=== PATIENT | female | born 1950 | race Caucasian/White ===

== ENCOUNTER 2020-01-15 18:11 | Inpatient (IN) | payer MEDICARE, OTHER ==
[2020-01-15] MEDS ORDERED: ONDANSETRON 4 MG/2 ML VIAL IVP PRN (22:50)
[2020-01-16] MEDS: ACETAMINOPHEN TAB 325 MG TAB PO PRN ×3 (00:26→23:47)
[2020-01-16] MEDS ORDERED: Acetaminophen-Codeine 300-30mg TAB PO PRN (04:17)
[2020-01-16] MEDS ORDERED: ALBUTEROL NEBULIZED 2.5 MG/3 ML INHALATION PRN (04:17)
[2020-01-16] MEDS: lisinopriL 10 MG TAB PO SCH ×2 (06:16→08:55)
[2020-01-16] MEDS: ISOSORBIDE MONONITRATE ER 30 MG TAB.ER.24H PO SCH (06:16)
[2020-01-16 06:58] LABS: Basophils % (A) 0 %; Eosinophils % (A) 1 %; HCT 42.6 % (34.0-46.0); HGB 13.7 gm/dL (11.4-16.0); Lymphocytes # (A) 0.4 k/uL (1.0-4.8); Lymphocytes % (A) 11 %; MCH 30.9 pg (25.0-35.0); MCV 96.4 fL (80.0-100.0); Mean Platelet Volume 7.8; Monocytes # (A) 0.1 k/uL (0-1.0); Monocytes % (A) 3 %; Neutrophils # (A) 2.7 k/uL (1.3-7.7); Neutrophils % (A) 84 %; Platelet Count 193 k/uL (150-450); RBC 4.42 m/uL (3.80-5.40); WBC 3.3 k/uL (3.8-10.6)
--- NOTE | 2020-01-16 07:05 | XR ---
EXAMINATION TYPE: XR chest 1V portable DATE OF EXAM: 01/16/2020 HISTORY: SOB/COUGH. REFERENCE: Previous study dated 01/15/2020. FINDINGS: There are bibasilar infiltrates. The heart is mildly enlarged. I suspect small, bilateral e ffusions. A pain stimulator projects over the mid dorsal spine. IMPRESSION: BIBASILAR BASILAR AIRSPACE DISEASE, SLIGHTLY WORSENED FROM PREVIOUS.
[2020-01-16] MEDS: SODIUM CHLORIDE 0.9% 1,000 ML IV SCH ×2 (07:07→13:03)
[2020-01-16 07:10] LABS: ALT 33 U/L (4-34); AST 53 U/L (14-36); African American GFR (CKD) >90 (>60 ml/min/1.73 sqM); Albumin 3.8 g/dL (3.5-5.0); Alkaline Phosphatase 90 U/L (38-126); Anion Gap 10 mmol/L; Blood Urea Nitrogen 15 mg/dL (7-17); Calcium 8.4 mg/dL (8.4-10.2); Carbon Dioxide 26 mmol/L (22-30); Chloride 103 mmol/L (98-107); Glucose 121 mg/dL (74-99); LDH 767 U/L (313-618); Non-African American GFR(CKD) >90 (>60 ml/min/1.73 sqM); Potassium 4.6 mmol/L (3.5-5.1); Sodium 139 mmol/L (137-145); Total Bilirubin 0.4 mg/dL (0.2-1.3); Total Protein 6.6 g/dL (6.3-8.2)
[2020-01-16 07:45] LABS: C Reactive Protein 210.4 mg/L (<10.0)
[2020-01-16] MEDS ORDERED: IPRATROPIUM 0.5 MG/2.5 ML NEBU INHALATION SCH (08:00)
[2020-01-16] MEDS: SERTRALINE 50 MG TAB PO SCH (08:46)
[2020-01-16] MEDS: atenoloL 50 MG TAB PO SCH (08:46)
[2020-01-16] MEDS: hydrALAZINE HCL 20 MG/ML 1 ML VIAL IVP PRN (08:47)
[2020-01-16] MEDS ORDERED: ALBUTEROL HFA INHALER INHALATION PRN ×2 (09:32→12:43)
[2020-01-16] MEDS: TIOTROPIUM 18 MCG/PUFF INHALER INHALATION SCH (11:11)
[2020-01-16] MEDS: SYMBICORT 160-4.5 MCG INHALER INHALATION SCH ×2 (11:11→19:02)
[2020-01-16] MEDS: dexAMETHasone 4 MG TAB PO SCH (11:13)
[2020-01-16] MEDS: ZINC SULFATE 220 MG CAP PO SCH (11:13)
[2020-01-16] MEDS: ASCORBIC ACID 500 MG TAB PO SCH (11:13)
[2020-01-16] MEDS: BENZONATATE 100 MG CAP PO PRN (11:13)
[2020-01-16 11:47] LABS: Ferritin 490.9 ng/mL (10.0-291.0)
[2020-01-16] MEDS ORDERED: IPRATROPIUM-ALBUTEROL 3 ML NEB INHALATION PRN (12:17)
[2020-01-16 12:48] LABS: INR 0.9 (<1.2); Partial Thromboplastin Time 24.2 sec (22.0-30.0); Prothrombin Time 9.4 sec (9.0-12.0)
--- NOTE | 2020-01-16 12:56 | CONS ---
CONSULTATION PULMONARY/CRITICAL CARE FOLLOWUP CONSULTATION: REASON FOR CONSULTATION: Covid-19 infection/Covid 19 pneumonia, COPD. DATE OF SERVICE: January 16, 2020 HISTORY OF PRESENT ILLNESS: This is a 69-year-old female who I see in my office for COPD. The patient does see Tricia Carter up in the [place] for her primary care provider. The patient does have a history of underlying COPD. Anyway, the patient apparently saw me last in November. At that time, she was doing relatively well. She usually is on oxygen at 2 L/minute 07/01. Subsequent to that, despite my warnings, the patient apparently went to [place] with her daughter for a wedding. At that time, [place] had a high case load of Covid-19 infections and apparently, both her and her daughter were infected with Covid-19 virus. Currently, the patient apparently has not been feeling well since last Saturday. She complained of shortness of breath, nonproductive cough, but loose cough, fever, diarrhea, and just generally not feeling well. She apparently presented to [facility] and for some reason was shipped down here to be cared for here. The patient is currently on 3 L nasal cannula. She is otherwise stable. Through the week, she initially felt a little worse and got better. Her symptoms again include fever, chills, muscle aches, shortness of breath, and chest congestion, nonproductive cough, and diarrhea. ALLERGIES: PENICILLIN. HOME MEDICATIONS: Include an atenolol, Spiriva Zoloft, magnesium, Imdur, vitamin D3, Symbicort, Tessalon Perles, albuterol, Tylenol with codeine, and Lasix. PAST MEDICAL HISTORY: Past medical history includes primarily COPD. The patient also has a history of hypertension. Other medical problems include chronic back pain. SURGICAL HISTORY: Mostly remote. SOCIAL HISTORY: Positive for previous tobacco use. Denies any alcohol use or illicit drug use. The rest of the history is unremarkable. REVIEW OF SYSTEMS: CONSTITUTIONAL weakness, muscle aches, joint aches. NEUROLOGIC negative. HEENT negative. CARDIOVASCULAR negative. PULMONARY: Shortness of breath, chest congestion, cough, nonproductive. GI diarrhea. negative. RHEUMATOLOGIC negative. IMMUNOLOGIC negative. ENDOCRINOLOGIC negative. DERMATOLOGIC negative. PHYSICAL EXAMINATION: VITAL SIGNS: Current vital signs are reviewed. Temperature is 98.7. Heart rate 73, respiratory rate 18, blood pressure 195/93, O2 saturations 98%. GENERAL: Appears in no acute distress. HEENT: Examination is grossly unremarkable. NECK: Supple. Full range of motion. No adenopathy. Neck veins are flat. CARDIOVASCULAR: Examination reveals regular rhythm and rate. Heart rate 73. S1, S2 normal. LUNGS: Reveal some diffuse coarse rhonchi and wheezes. There are expiratory wheezes. There are crackles bilaterally. Breath sounds equal bilaterally. There is prolongation on forced maneuver. ABDOMEN: Soft. Bowel sounds are heard. EXTREMITIES are intact. No cyanosis, clubbing, or edema. LAB DATA: Reviewed. White count 3.3, hemoglobin 13.7, hematocrit 42.7, platelet count 193,000. She is lymphopenic. D-dimer 0.68. Sodium 139, potassium 4.6, chloride 103, CO2 26. Anion gap is 10, BUN and creatinine were 15 and 0.63, glucose 121, AST 53, LDH 757. C- reactive protein 210. Microbiology is negative. The patient apparently did test positive for Covid-19 on Saturday. She started getting sick last Saturday. Chest x-ray shows bibasilar airspace disease, slightly worse than an x-ray done on January 14. Current medications include Tylenol, albuterol inhaler, Tenormin, Tessalon Perles, Symbicort, vitamin D, Apresoline p.r.n., Imdur, lisinopril, Zofran, Zoloft, and Tiotropium bromide. ASSESSMENT: 1. COVID-19 pneumonitis with mild worsening of the patient's chronic hypoxemia. 2. History of oxygen-dependent chronic obstructive pulmonary disease. 3. Previous history of tobacco use. 4. Recent exposure to individuals with Covid-19 with taking a trip to [place] in mid- December. PLAN: Current medications are appropriate. We will add some vitamin C and zinc. We will also add Decadron 2 mg a day. No additional recommendations are made. In my opinion, there was no reason for this patient to be transferred down from the outside hospital to this hospital. Additional recommendations and suggestions are forthcoming. MMODL / IJN: [id number] /
[2020-01-16] MEDS: ENOXAPARIN 40 MG/0.4 ML SYRINGE SQ SCH (13:03)
[2020-01-16] MEDS: ALBUTEROL HFA INHALER INHALATION SCH ×2 (13:47→19:02)
--- NOTE | 2020-01-16 14:02 | HP ---
HISTORY AND PHYSICAL CHIEF COMPLAINTS: Shortness of breath, cough and muscle aches and fever and Covid-19. HISTORY OF PRESENT ILLNESS: This is a 69-year-old woman with a past medical history of multiple medical problems including history of COPD, hypertension, supraventricular tachycardia, history of pulmonary hypertension, history of nerve stimulator in the back, being followed by Tricia Carter and Dr. Mart in the outpatient setting, apparently went to [place] to attend a wedding of the granddaughter on of last month. Apparently there were 150 guests and the patient tried to stay in the back, but however, 1 of her daughters who was working in the Covid unit in 1 of the [place] [facility] tested positive later. There was minimal interaction with people according to her. [facility] had several cases at that time. The patient had some cough, muscle aches, fever, shortness of breath and patient presented with some diarrhea, vomiting also. The patient presented to [facility] where the patient was found to have pulse ox around 86 on room air. The patient transferred to [facility] for further evaluation and treatment. Currently the patient is vomiting and unable to keep anything down. There is no history of headache, loss of consciousness, seizures at this time. No history of any chest pain. No palpitations. PAST MEDICAL HISTORY: History of COPD, hypertension, supraventricular tachycardia, back surgery. MEDICATIONS: Home medications are: 1. Tenormin. 2. Spiriva. 3. Zoloft. 4. Magnesium. 5. Imdur. 6. Vitamin D2. 7. Symbicort. 8. Tessalon Perles. 9. Ventolin HFA. 10.Tylenol No.3. 11.Lasix. 12.Doses reviewed. ALLERGIES: PENICILLIN. FAMILY HISTORY: No history of heart disease or strokes in the family. SOCIAL HISTORY: Occasional history of alcohol intake. Previous history of smoking. No history of current smoking. REVIEW OF SYSTEMS: ENT: No diminished vision. No diminished hearing. Cardiovascular as mentioned earlier. Respiratory: As mentioned earlier. GI: As mentioned earlier. : No dysuria or hematuria. NERVOUS SYSTEM: No numbness or weakness. ALLERGY/IMMUNOLOGY: No asthma or hayfever. MUSCULOSKELETAL as mentioned earlier. HEMATOLOGY/ONCOLOGY: No history of anemia. ENDOCRINE: No history of diabetes or hypothyroidism. CONSTITUTIONAL: As mentioned earlier. DERMATOLOGY: Negative. RHEUMATOLOGY negative. PSYCHIATRY as mentioned earlier. PHYSICAL EXAMINATION: Alert and oriented x3. Pulse is 73. Blood pressure 195/90, respiration 18, temperature 98.7, pulse ox 98% on 3 L. HEENT: Conjunctivae normal. Oral mucosa moist. NECK is no jugular venous distention. No carotid bruit. No lymph node enlargement. CARDIOVASCULAR: S1, S2. RESPIRATION: Breath sounds diminished in the bases. A few scattered rhonchi and crackles. Expiratory wheezing also present. ABDOMEN: Soft, nontender. No mass palpable. LEGS: No edema. No swelling. NERVOUS SYSTEM: Higher functions as mentioned earlier. Moves all 4 limbs. No focal motor or sensory deficits. Lymphatics: No lymph nodes palpable in the neck, axillae or groin. SKIN: No ulcer, rash or bleeding. JOINTS: No active deforming arthropathy. LABS: At this time shows WBC 3.3, hemoglobin 13.7. D-dimer is 0.68 and glucose 121. The ferritin is 498.9. AST 753, ALT 76. is 210. ASSESSMENT: 1. Acute bilateral pneumonia with acute hypoxic respiratory failure possibly secondary to Covid-19 pneumonia. 2. Chronic obstructive pulmonary disease acute exacerbation. 3. Leukopenia. 4. Elevated D-dimer. 5. Elevated ferritin. 6. Increased AST. 7. Increased LDH and C-reactive protein. 8. History of chronic obstructive pulmonary disease. 9. Hypertension. 10.Supraventricular tachycardia. 11.Left leg pain and numbness and spasms. 12.History of pulmonary hypertension. 13.History of nerve stimulator in the back. 14.History of degenerative joint disease. 15.History of anxiety. 16.Obesity with body mass index of 37.2. 17.Remote history of nicotine dependence. RECOMMENDATIONS AND DISCUSSION: This 69-year-old woman who presented with multiple complex medical issues, at this time I recommend continue the current medications, symptomatic treatment. We will optimize bronchodilators and steroids, empiric antibiotics. Pulmonary and infectious disease evaluations. The patient might be a candidate for chloroquine. We will monitor along with Infectious Disease. Other than that, repeat labs will be ordered. If the patient is vomiting, I would keep the patient n.p.o. except medications and advance the diet if the patient is able to tolerate the diet. Overall prognosis extremely guarded because of multiple complex medical issues, I recommended a 2D echo with Doppler also. A copy of this dictation will be forwarded to Dr. Tricia Carter who is the primary physician. We will follow closely with Pulmonary, Infectious Disease. MMODL / IJN: [id number] / ANN
[2020-01-16] MEDS ORDERED: [UNRECOGNIZED DRUG - OTHER] IV ONE (16:00)
[2020-01-16] MEDS ORDERED: [UNRECOGNIZED DRUG - OTHER] IV ONE (16:00)
[2020-01-16] MEDS ORDERED: SODIUM CHLORIDE 0.9% IV ONE ×2 (16:00)
[2020-01-16 19:20] LABS: Appearance,Urine Clear (Clear); Bacteria,Urine Rare /hpf; Bilirubin,Urine Negative (Negative); Blood,Urine Trace (Negative); Color,Urine Yellow; Glucose,Urine (UA) Negative (Negative); Ketones,Urine 2+ (Negative); Leukocyte Esterase,Urine Negative (Negative); Mucus,Urine Rare /hpf; Nitrite,Urine Negative (Negative); PH, Urine 6.5 (5.0-8.0); Protein,Urine Trace (Negative); RBC,Urine <1 /hpf (0-5); Specific Gravity,Urine 1.012 (1.001-1.035); Squamous Epithelial Cell,Urine 1 /hpf (0-4); Urobilinogen,Urine <2.0 mg/dL (<2.0); WBC,Urine 1 /hpf (0-5)
[2020-01-16] MEDS: MAGNESIUM OXIDE 400 MG TAB PO SCH (21:31)
[2020-01-16] MEDS: FAMOTIDINE 20 MG TAB PO SCH (21:31)
[2020-01-16] MEDS: PANTOPRAZOLE 40 MG/10 ML VIAL IVP SCH (21:31)
--- NOTE | 2020-01-16 23:28 | P.CONS ---
History of Present Illness - Reason for Consult Consult date: 01/16/20 Covid 19 pneumonia Requesting physician: Brittany Bhandari - Chief Complaint Worsening shortness of breath x 2 days - History of Present Illness Patient is 69-year-old female with a past medical history significant for COPD this patient who recently did have a visit to [place] to attend wedding of her granddaughter, patient started getting sick last Saturday about 6 days ago the symptoms have been fever of 101F along with a cough which has been moderate in intensity but mostly dry in nature, she did have a nasopharyngeal swab for Covid 19 done on Saturday which came back positive, we'll the last 2 days for the patient having increasing shortness of breath on minimal exertion and even at rest with worsening symptoms patient went to the [facility] with the patient was noticed to be hypoxic with O2 sats of 86% on room air chest x-ray did show bilateral pulmonary infiltrate subsequent the patient has been transferred to [facility] for further management of her viral pneumonia, the patient is afebrile today however still complaining of shortness of breath on minimal exertion she continued have a cough which is moderate intensity and dry in nature. Did have some nausea and episode of vomiting denies any abdominal pain and is have 1 loose stool, patient workup so far including leukopenia and lymphopenia mildly elevated AST elevated LDH and CRP chest x-ray repeated today shows worsening compared to yesterday, infectious disease was consulted for management of underlying viral pneumonia Review of Systems Positive point has been mentioned in the HPI rest of the systems are negative Past Medical History Past Medical History: COPD, Hypertension, Supraventricular Tachycardia (SVT) Additional Past Medical History / Comment(s): left leg- pain, numbness, spasms. PULMONARY HTN, NERVE STIMULATOR IN BACK History of Any Multi-Drug Resistant Organisms: None Reported Past Surgical History: Back Surgery, Cholecystectomy, Orthopedic Surgery Additional Past Surgical History / Comment(s): lt foot surgery, LAMINECTOMY 05/24/14, PAIN CLINIC PROCEDURES Past Anesthesia/Blood Transfusion Reactions: No Reported Reaction Past Psychological History: Anxiety Smoking Status: Never smoker Past Alcohol Use History: Occasional Past Drug Use History: None Reported - Past Family History Mother Family Medical History: No Reported History Medications and Allergies Home Medications Medication Instructions Recorded Confirmed Type atenoloL [Tenormin] 50 mg PO DAILY 12/02/14 01/15/20 History Acetaminophen-Codeine 300-30mg 1 tab PO TID PRN 12/06/14 01/15/20 History [Tylenol w/codeine #3] Albuterol Inhaler [Ventolin Hfa 2 puff INHALATION RT-Q6H PRN 01/15/20 01/15/20 History Inhaler] Benzonatate [Tessalon Perles] 100 mg PO TID PRN 01/15/20 01/15/20 History Budesonide/Formoterol Fumarate 2 puff INHALATION RT-BID 01/15/20 01/15/20 History [Symbicort 160-4.5 Mcg Inhaler] Ergocalciferol [Vitamin D2] 50,000 unit PO TUTH 01/15/20 01/15/20 History Furosemide [Lasix] 40 mg PO DAILY 01/15/20 01/15/20 History Isosorbide Mononitrate ER [Imdur] 30 mg PO DAILY 01/15/20 01/15/20 History Magnesium 200 mg PO HS 01/15/20 01/15/20 History Sertraline [Zoloft] 50 mg PO DAILY 01/15/20 01/15/20 History Sf Plus 1.1% 1 applic PO BID 01/15/20 01/15/20 History Tiotropium 18 Mcg/Puff [Spiriva] 1 puff INHALATION RT-DAILY 01/15/20 01/15/20 History Allergies Allergy/AdvReac Type Severity Reaction Status Date / Time Penicillins Allergy Rash/Hives Verified 01/15/20 22:53 Physical Exam Vitals: Vital Signs Temp Pulse Resp BP Pulse Ox 01/16/20 08:41 98.7 F 73 18 195/90 98 01/16/20 04:00 98.2 F 92 18 217/104 97 01/16/20 00:00 97.6 F 75 20 184/84 97 01/15/20 22:23 97.5 F L 74 18 143/75 95 Intake and Output 01/15/20 01/16/20 01/16/20 22:59 06:59 14:59 Intake Total 310 Output Total 0 Balance 0 310 Intake: IV 10 Invasive Line 2 10 Oral 300 Output: Urine 0 Other: Voiding Method Bedside Commode # Voids 1 Weight 96.3 kg 96.3 kg GENERAL DESCRIPTION: An elderly female lying in bed in no distress. No tachypnea or accessory muscle of respiration use. HEENT: Shows Pallor , no scleral icterus. Oral mucous membrane is dry. No pharyngeal erythema or thrush NECK: Trachea central, no thyromegaly. LUNGS: Unlabored breathing. Decreased intensity of breath sounds with bilateral basilar crackle. HEART: S1, S2, regular rate and rhythm. No loud murmur ABDOMEN: Soft, no tenderness , guarding or rigidity, no organomegaly EXTREMITIES: No edema of feet. SKIN: No rash, no masses palpable. NEUROLOGICAL: The patient is awake, alert, oriented x3, mood and affect normal. Results CBC & Chem 7: 01/16/20 06:39 01/16/20 06:39 Labs: Abnormal Lab Results - Last 24 Hours (Table) 01/16/20 01/16/20 01/16/20 Range/Units 06:39 06:39 06:39 WBC 3.3 L (3.8-10.6) k/uL Lymphocytes # 0.4 L (1.0-4.8) k/uL D-Dimer 0.68 H (<0.60) mg/L FEU Glucose 121 H (74-99) mg/dL Ferritin 490.9 H (10.0-291.0) ng/mL AST 53 H (14-36) U/L Lactate Dehydrogenase 767 H (313-618) U/L C-Reactive Protein 210.4 H (<10.0) mg/L Assessment and Plan Assessment: 1- patient being admitted to the hospital with the physicians breath and hypoxemia in this patient's symptoms started about 6 days ago predominantly with fever cough which has been moderate in intensity now with worsening shortness of breath and O2 sats of 86% on room air and a chest x-ray today shows bilateral pulmonary infiltrate that seemed to have got worse over last 24 hour, patient did have lymphopenia elevated AST and TSH and a CRP all pointed towards acute viral pneumonia secondary to Covid 19 (1) Pneumonia due to COVID-19 virus Current Visit: Yes Status: Acute Code(s): U07.1 - COVID-19; J12.89 - OTHER VIRAL PNEUMONIA SNOMED Code(s): 430189279 Plan: 1- patient has been started on dexamethasone 6mg by mouth daily to continue along with Lovenox 2- patient to meet criteria for starting Redemsivir which has been confirmed with the pharmacist and we started with 200 mg 1 followed by 100 mg daily for 4 doses 3- respiratory support and droplet isolation 4- no need for systemic antibiotics since no evidence of bacterial pneumonia We will follow on clinical condition and cultures to further adjust medication if needed Thank you for this consultation will follow this patient with you Time with Patient: Greater than 30
[2020-01-17] MEDS: SODIUM CHLORIDE 0.9% 1,000 ML IV SCH ×2 (06:02→08:47)
--- NOTE | 2020-01-17 06:41 | XR ---
EXAMINATION TYPE: XR chest 1V DATE OF EXAM: 01/17/2020 HISTORY: pneumonia. REFERENCE: Previous study dated 01/16/2020. FINDINGS: There is continuing bibasilar airspace disease which has worsened on the right. Heart is mi ldly enlarged. Pleural spaces are clear. A pain stimulator projects over the lower dorsal spine. IMPRESSION: WORSENING BIBASILAR AIRSPACE DISEASE.
[2020-01-17 08:38] LABS: Basophils % (A) 0 %; Eosinophils % (A) 0 %; HCT 42.7 % (34.0-46.0); HGB 13.4 gm/dL (11.4-16.0); Lymphocytes # (A) 0.5 k/uL (1.0-4.8); Lymphocytes % (A) 8 %; MCH 30.1 pg (25.0-35.0); MCHC 31.4 g/dL (31.0-37.0); MCV 96.1 fL (80.0-100.0); Mean Platelet Volume 7.9; Monocytes # (A) 0.3 k/uL (0-1.0); Monocytes % (A) 5 %; Neutrophils # (A) 5.7 k/uL (1.3-7.7); Neutrophils % (A) 86 %; Platelet Count 249 k/uL (150-450); RBC 4.44 m/uL (3.80-5.40); RDW 13.9 % (11.5-15.5); WBC 6.7 k/uL (3.8-10.6)
[2020-01-17] MEDS: lisinopriL 10 MG TAB PO SCH (08:46)
[2020-01-17] MEDS: ENOXAPARIN 40 MG/0.4 ML SYRINGE SQ SCH (08:46)
[2020-01-17] MEDS: PANTOPRAZOLE 40 MG/10 ML VIAL IVP SCH (08:46)
[2020-01-17] MEDS: SERTRALINE 50 MG TAB PO SCH (08:46)
[2020-01-17] MEDS: atenoloL 50 MG TAB PO SCH (08:46)
[2020-01-17] MEDS: ISOSORBIDE MONONITRATE ER 30 MG TAB.ER.24H PO SCH (08:46)
[2020-01-17] MEDS: ZINC SULFATE 220 MG CAP PO SCH (08:46)
[2020-01-17] MEDS: FAMOTIDINE 20 MG TAB PO SCH ×2 (08:46→21:39)
[2020-01-17] MEDS: dexAMETHasone 4 MG TAB PO SCH (08:46)
[2020-01-17] MEDS: FUROSEMIDE 40 MG TAB PO SCH (08:46)
[2020-01-17] MEDS: ASCORBIC ACID 500 MG TAB PO SCH (08:47)
[2020-01-17] MEDS: hydrALAZINE HCL 20 MG/ML 1 ML VIAL IVP PRN (08:49)
[2020-01-17 08:56] LABS: ALT 37 U/L (4-34); AST 60 U/L (14-36); African American GFR (CKD) >90 (>60 ml/min/1.73 sqM); Albumin 3.4 g/dL (3.5-5.0); Alkaline Phosphatase 81 U/L (38-126); Anion Gap 8 mmol/L; Blood Urea Nitrogen 18 mg/dL (7-17); Calcium 8.6 mg/dL (8.4-10.2); Carbon Dioxide 27 mmol/L (22-30); Chloride 104 mmol/L (98-107); Glucose 103 mg/dL (74-99); LDH 825 U/L (313-618); Non-African American GFR(CKD) 85 (>60 ml/min/1.73 sqM); Potassium 4.6 mmol/L (3.5-5.1); Sodium 139 mmol/L (137-145); Total Bilirubin 0.4 mg/dL (0.2-1.3); Total Protein 6.1 g/dL (6.3-8.2)
[2020-01-17] MEDS: ALBUTEROL HFA INHALER INHALATION SCH ×3 (09:06→19:59)
[2020-01-17] MEDS: TIOTROPIUM 18 MCG/PUFF INHALER INHALATION SCH (09:07)
[2020-01-17] MEDS: SYMBICORT 160-4.5 MCG INHALER INHALATION SCH ×2 (09:07→19:59)
[2020-01-17] MEDS: hydrALAZINE HCL 50 MG TAB PO SCH ×3 (10:22→21:44)
[2020-01-17] MEDS: amLODIPine 10 MG TAB PO SCH (10:22)
[2020-01-17 11:53] LABS: Glucose,Whole Blood 120 mg/dL (75-99)
--- NOTE | 2020-01-17 12:57 | P.PN ---
Subjective Progress Note Date: 01/17/20 Principal diagnosis: CoVID 19 pneumonitis The patient is seen today 01/17/2020 in follow-up on the selective care unit. She had been admitted with acute on chronic hypoxemic respiratory failure secondary to CoVID19 pneumonitis. She was initiated on Remdesivir yesterday. Today's chest x-ray shows worsening bibasilar airspace disease right greater than left. She is now on 4 L nasal cannula maintaining O2 saturations in the low 90s. She is quite dyspneic with minimal exertion. Afebrile. White count 6.7. Hemoglobin 13.4. Lymphocytes 0.5. Sodium 139. Potassium 4.6. C reatinine 0.73. Glucose 103. AST 60. ALT 37. LDH 825. Objective - Vital Signs Vital signs: Vital Signs Temp 97.7 F 01/17/20 11:30 Pulse 93 01/17/20 11:30 Resp 26 H 01/17/20 11:30 BP 149/72 01/17/20 11:30 Pulse Ox 91 L 01/17/20 11:30 Intake & Output 01/16/20 01/17/20 01/17/20 18:59 06:59 18:59 Intake Total 232 093 4285 Balance 782 781 6499 Weight 97.8 kg Intake: IV 280 610 Invasive Line 2 20 Invasive Line 4 10 Non Formulary Drug 200 210 each In Sodium Chloride 0 .9% 210 ml @ 250 mls/hr IV .Q1H ONE Rx#:[id number] Sodium Chloride 0.9% 1, 600 000 ml @ 75 mls/hr IV . [id number] [facility] Rx#:[id number] cefTRIAXone 1 gm In 50 Sodium Chloride 0.9% 50 ml @ 100 mls/hr IVPB Q24HR [facility] Rx#:[id number] Intake, IV Titration 450 Amount Sodium Chloride 0.9% 1, 450 000 ml @ 75 mls/hr IV . [id number] [facility] Rx#:[id number] Oral 470 1200 Other: Voiding Method Toilet Toilet Toilet # Voids 1 1 300 - Exam GENERAL EXAM: Alert, very pleasant 69-year-old female patient, on 4 L/m per nasal cannula with O2 saturation in low 90s, dyspneic with minimal exertion HEAD: Normocephalic. EYES: Normal reaction of pupils, equal size. NOSE: Clear with pink turbinates. THROAT: No erythema or exudates. NECK: No masses, no JVD. CHEST: No chest wall deformity. LUNGS: Equal air entry with few scattered rhonchi and crackles in the posterior bases. Diminished CVS: S1 and S2 normal with no audible murmur, regular rhythm. ABDOMEN: No hepatosplenomegaly, normal bowel sounds, no guarding or rigidity. SPINE: No scoliosis or deformity SKIN: No rashes CENTRAL NERVOUS SYSTEM: No focal deficits, tone is normal in all 4 extremities. EXTREMITIES: There is no peripheral edema. No clubbing, no cyanosis. Peripheral pulses are intact. - Labs CBC & Chem 7: 01/17/20 08:13 01/17/20 08:13 Labs: Abnormal Lab Results - Last 24 Hours (Table) 01/16/20 01/17/20 01/17/20 Range/Units 18:45 08:13 08:13 Lymphocytes # 0.5 L (1.0-4.8) k/uL BUN 18 H (7-17) mg/dL Glucose 103 H (74-99) mg/dL POC Glucose (mg/dL) (75-99) mg/dL AST 60 H (14-36) U/L ALT 37 H (4-34) U/L Lactate Dehydrogenase 825 H (313-618) U/L Total Protein 6.1 L (6.3-8.2) g/dL Albumin 3.4 L (3.5-5.0) g/dL Urine Protein Trace H (Negative) Urine Ketones 2+ H (Negative) Urine Blood Trace H (Negative) Urine Bacteria Rare H (None) /hpf Urine Mucus Rare H (None) /hpf 01/17/20 Range/Units 11:49 Lymphocytes # (1.0-4.8) k/uL BUN (7-17) mg/dL Glucose (74-99) mg/dL POC Glucose (mg/dL) 120 H (75-99) mg/dL AST (14-36) U/L ALT (4-34) U/L Lactate Dehydrogenase (313-618) U/L Total Protein (6.3-8.2) g/dL Albumin (3.5-5.0) g/dL Urine Protein (Negative) Urine Ketones (Negative) Urine Blood (Negative) Urine Bacteria (None) /hpf Urine Mucus (None) /hpf Assessment and Plan Assessment: 1 Acute on chronic hypoxemic respiratory failure secondary to CoVID 19 pneumonitis 2 Acute exacerbation of chronic obstructive pulmonary disease secondary to above 3 Chronic tobacco dependence 4 Hypertension Plan: The patient was seen and evaluated by Dr. Mart Chest x-ray and labs reviewed She is currently on Remdesivir, Decadron, vitamin C and zinc Repeat inflammatory markers in the a.m. Repeat chest x-ray in the a.m. Titrate down the FiO2 as tolerated Continue isolation precautions We will continue to follow make further recommendations based on her clinical status I, the cosigning physician, performed a history & physical examination of the patient. Lungs sounds few scattered rhonchi, crackles in the posterior bases. Maintaining good O2 saturations in the 90s on 4 L/m per nasal cannula. I discussed the assessment and plan of care with my nurse practitioner, Gladys Manning. I attest to the above note as dictated by her.
--- NOTE | 2020-01-17 13:17 | P.CRDCN ---
History of Present Illness Consult date: 01/17/20 Consult reason: hypertension History of present illness: History of present illness: This is a 69-year-old female, follows with can handler out of [facility]. History of pulmonary hypertension, hypertension, chronic back pain status post multiple pain procedures. Patient was in [place] for a wedding and on Saturday developed temperature of 101. On Saturday she had called the testing which came back positive. She is complaining of shortness of breath and cough as well as generalized malaise, weakness and feeling tired. Patient came into [facility] emergency center. The patient has been started on COVID-19 treatment with Remdesivir yesterday. Today's chest x-ray shows worsening bibasilar airspace disease right greater than left. CBC is normal. Electrolytes normal, BUN 18 and creatinine 0.73. Blood sugar 103. AST 60, ALT 37, LDH 825. Troponins have been negative on 3 draws. Review Of Systems: Constitutional: No fever, no chills. Reports weakness, Reportsfatigue, Reports lethargy. EENT: No headache. No blurred vision. Lungs: Reports shortness of breath, Reportscough, no sputum production. Reports wheezing. Cardiovascular: No chest pain, no lower extremity edema. No palpitations. No paroxysmal nocturnal dyspnea. No orthopnea. No lightheadedness or dizziness. No syncopal episodes. Abdominal: No abdominal pain. No nausea, vomiting. No diarrhea. No constipation. No bloody or tarry stools. Reports loss of appetite. Genitourinary: No dysuria, increased frequency, urgency. No urinary retention. Musculoskeletal: Reports myalgias. No muscle weakness, no gait dysfunction, no frequent falls. No back pain. No neck pain. Integumentary: No wounds, no lesions. No rash or pruritus. No unusual bruising. Neurologic: No aphasia. No facial droop. No change in mentation. No head injury. No headache. No paralysis. No paresthesia. Psychiatric: No depression. No anxiety. No mood swings. Endocrine: No abnormal blood sugars. Physical examination: Gen: This is a 69-year-old female. She is resting in bed and appears to be fatigued. No acute respiratory distress noted. VS: blood pressure 201/88, pulse ox 96% on 3 L nasal cannula and heart rate 98. HEENT: Head is atraumatic, normocephalic. Pupils equal, round. Sclerae is anicteric. NECK: Supple. No JVD. No lymphadenopathy. No thyromegaly. LUNGS: Scattered rhonchi. No intercostal retractions. HEART: Regular rate and rhythm. No murmur. ABDOMEN: Soft. Bowel sounds are present. No masses. No tenderness. EXTREMITIES: No pedal edema. No calf tenderness. NEUROLOGICAL: Patient is awake, alert and oriented x3. Cranial nerves 2 through 12 are grossly intact. Assessment: Hypertensive emergency Acute on chronic hypoxic respiratory failure secondary to COVID-19 pneumonitis Acute exacerbation of COPD Chronic tobacco use History of pulmonary hypertension Plan: Continue atenolol 50 mg daily, Lasix 40 mg daily, Imdur 30 mg daily Patient has been started on lisinopril 10 mg which will be continued And amlodipine 10 mg daily and hydralazine 50 mg every 8 hours Obtain 2-D echocardiogram and Doppler study to assess cardiac structure and function Further recommendations to follow based upon clinical course Thank you kindly for this consultation Nurse practitioner note has been reviewed, I agree with documented findings and plan of care. Patient was seen and examined. Past Medical History Past Medical History: COPD, Hypertension, Supraventricular Tachycardia (SVT) Additional Past Medical History / Comment(s): left leg- pain, numbness, spasms. PULMONARY HTN, NERVE STIMULATOR IN BACK History of Any Multi-Drug Resistant Organisms: None Reported Past Surgical History: Back Surgery, Cholecystectomy, Orthopedic Surgery Additional Past Surgical History / Comment(s): lt foot surgery, LAMINECTOMY 05/24/14, PAIN CLINIC PROCEDURES Past Anesthesia/Blood Transfusion Reactions: No Reported Reaction Past Psychological History: Anxiety Smoking Status: Never smoker Past Alcohol Use History: Occasional Past Drug Use History: None Reported - Past Family History Mother Family Medical History: No Reported History Medications and Allergies Home Medications Medication Instructions Recorded Confirmed Type atenoloL [Tenormin] 50 mg PO DAILY 12/02/14 01/15/20 History Acetaminophen-Codeine 300-30mg 1 tab PO TID PRN 12/06/14 01/15/20 History [Tylenol w/codeine #3] Albuterol Inhaler [Ventolin Hfa 2 puff INHALATION RT-Q6H PRN 01/15/20 01/15/20 History Inhaler] Benzonatate [Tessalon Perles] 100 mg PO TID PRN 01/15/20 01/15/20 History Budesonide/Formoterol Fumarate 2 puff INHALATION RT-BID 01/15/20 01/15/20 History [Symbicort 160-4.5 Mcg Inhaler] Ergocalciferol [Vitamin D2] 50,000 unit PO TUTH 01/15/20 01/15/20 History Furosemide [Lasix] 40 mg PO DAILY 01/15/20 01/15/20 History Isosorbide Mononitrate ER [Imdur] 30 mg PO DAILY 01/15/20 01/15/20 History Magnesium 200 mg PO HS 01/15/20 01/15/20 History Sertraline [Zoloft] 50 mg PO DAILY 01/15/20 01/15/20 History Sf Plus 1.1% 1 applic PO BID 01/15/20 01/15/20 History Tiotropium 18 Mcg/Puff [Spiriva] 1 puff INHALATION RT-DAILY 01/15/20 01/15/20 History Allergies Allergy/AdvReac Type Severity Reaction Status Date / Time Penicillins Allergy Rash/Hives Verified 01/15/20 22:53 Physical Exam Vitals: Vital Signs Temp Pulse Resp BP Pulse Ox 01/17/20 08:44 98 18 01/17/20 08:37 98.6 F 98 18 201/88 96 01/17/20 04:00 98.3 F 74 18 158/91 97 01/17/20 00:00 97.9 F 72 20 179/81 96 01/16/20 20:00 98.8 F 96 22 172/77 94 L 01/16/20 17:54 18 01/16/20 17:48 97.6 F 72 18 138/73 98 01/16/20 11:22 98.7 F 72 18 179/83 97 Intake and Output 01/16/20 01/17/20 01/17/20 22:59 06:59 14:59 Intake Total 494 912 4138 Balance 297 135 9330 Intake: IV 260 600 Non Formulary Drug 200 210 each In Sodium Chloride 0 .9% 210 ml @ 250 mls/hr IV .Q1H ONE Rx#:[id number] Sodium Chloride 0.9% 1, 600 000 ml @ 75 mls/hr IV . [id number] [facility] Rx#:[id number] cefTRIAXone 1 gm In 50 Sodium Chloride 0.9% 50 ml @ 100 mls/hr IVPB Q24HR [facility] Rx#:[id number] Intake, IV Titration 450 Amount Sodium Chloride 0.9% 1, 450 000 ml @ 75 mls/hr IV . [id number] [facility] Rx#:[id number] Oral 120 600 Other: Voiding Method Toilet Toilet Toilet # Voids 1 1 300 Weight 97.8 kg Results 01/17/20 08:13 01/17/20 08:13 Cardiac Enzymes 01/16/20 01/16/20 01/16/20 Range/Units 06:39 14:03 20:23 AST (14-36) U/L Lactate Dehydrogenase (313-618) U/L Troponin I <0.012 <0.012 <0.012 (0.000-0.034) ng/mL 01/17/20 Range/Units 08:13 AST 60 H (14-36) U/L Lactate Dehydrogenase 825 H (313-618) U/L Troponin I (0.000-0.034) ng/mL Coagulation 01/16/20 Range/Units 06:39 PT 9.4 (9.0-12.0) sec APTT 24.2 (22.0-30.0) sec CBC 01/17/20 Range/Units 08:13 WBC 6.7 (3.8-10.6) k/uL RBC 4.44 (3.80-5.40) m/uL Hgb 13.4 (11.4-16.0) gm/dL Hct 42.7 (34.0-46.0) % Plt Count 249 (150-450) k/uL Comprehensive Metabolic Panel 01/17/20 Range/Units 08:13 Sodium 139 (137-145) mmol/L Potassium 4.6 (3.5-5.1) mmol/L Chloride 104 (98-107) mmol/L Carbon Dioxide 27 (22-30) mmol/L BUN 18 H (7-17) mg/dL Creatinine 0.73 (0.52-1.04) mg/dL Glucose 103 H (74-99) mg/dL Calcium 8.6 (8.4-10.2) mg/dL AST 60 H (14-36) U/L ALT 37 H (4-34) U/L Alkaline Phosphatase 81 (38-126) U/L Total Protein 6.1 L (6.3-8.2) g/dL Albumin 3.4 L (3.5-5.0) g/dL Current Medications Generic Name Dose Route Start Last Admin Trade Name Freq PRN Reason Stop Dose Admin Acetaminophen 650 mg 01/15/20 22:50 01/16/20 23:47 Tylenol Tab PO 650 mg Q4HR PRN Administration Fever and/ or Pain Acetaminophen/Codeine Phosphate 1 each 01/16/20 04:17 Tylenol #3 PO TID PRN Pain Albuterol Sulfate 2 puff 01/16/20 13:00 01/16/20 19:02 Ventolin Hfa Inhaler INHALATION 2 puff RT-TID [facility] Administration Albuterol Sulfate 2 puff 01/16/20 12:43 Ventolin Hfa Inhaler INHALATION RT-Q2H PRN Shortness Of Breath Ascorbic Acid 500 mg 01/16/20 12:00 01/17/20 08:47 Vitamin C PO 500 mg DAILY [facility] Administration Atenolol 50 mg 01/16/20 09:00 01/17/20 08:46 Tenormin PO 50 mg DAILY [facility] Administration Benzonatate 100 mg 01/16/20 04:17 01/16/20 11:13 Tessalon Perles PO 100 mg TID PRN Administration Cough Budesonide/Formoterol Fumarate 2 puff 01/16/20 08:00 01/16/20 19:02 Symbicort 160-4.5 Mcg Inhaler INHALATION 2 puff RT-BID [facility] Administration Dexamethasone 6 mg 01/16/20 12:00 01/17/20 08:46 Hexadrol PO 6 mg DAILY [facility] Administration Enoxaparin Sodium 40 mg 01/16/20 13:00 01/17/20 08:46 Lovenox SQ 40 mg Q24HR [facility] Administration Ergocalciferol 50,000 unit 01/19/20 09:00 Vitamin D2 PO TuTh@0900 [facility] Famotidine 20 mg 01/16/20 21:00 01/17/20 08:46 Pepcid PO 20 mg BID [facility] Administration Furosemide 40 mg 01/17/20 09:00 01/17/20 08:46 Lasix PO 40 mg DAILY [facility] Administration Hydralazine HCl 10 mg 01/16/20 06:05 01/17/20 08:49 Apresoline IVP 10 mg Q6HR PRN Administration Blood Pressure - High Sodium Chloride 1,000 mls @ 75 mls/hr 01/15/20 23:00 01/17/20 08:47 Saline 0.9% IV 75 mls/hr .[id number] [facility] Administration Non-Formulary Medication 100 250 mls @ 250 mls/hr 01/17/20 16:00 each/ Sodium Chloride IV 01/20/20 16:59 Q24H [facility] Isosorbide Mononitrate 30 mg 01/16/20 09:00 01/17/20 08:46 Imdur PO 30 mg DAILY [facility] Administration Lisinopril 10 mg 01/16/20 06:06 01/17/20 08:46 Zestril PO 10 mg DAILY [facility] Administration Magnesium Oxide 200 mg 01/16/20 21:00 01/16/20 21:31 Mag-Ox PO 200 mg HS [facility] Administration Ondansetron HCl 4 mg 01/15/20 22:50 Zofran IVP Q6HR PRN Nausea And Vomiting Pantoprazole Sodium 40 mg 01/16/20 21:00 01/17/20 08:46 Protonix IVP 40 mg BID [facility] Administration Sertraline HCl 50 mg 01/16/20 09:00 01/17/20 08:46 Zoloft PO 50 mg DAILY [facility] Administration Tiotropium [place] 1 puff 01/16/20 10:00 01/16/20 11:11 Spiriva INHALATION 1 puff RT-DAILY [facility] Administration Zinc Sulfate 220 mg 01/16/20 12:00 01/17/20 08:46 Orazinc PO 220 mg DAILY [facility] Administration Intake and Output 01/16/20 01/17/20 01/17/20 22:59 06:59 14:59 Intake Total 599 793 5577 Balance 812 955 6558 Intake: IV 260 600 Non Formulary Drug 200 210 each In Sodium Chloride 0 .9% 210 ml @ 250 mls/hr IV .Q1H ONE Rx#:[id number] Sodium Chloride 0.9% 1, 600 000 ml @ 75 mls/hr IV . [id number] [facility] Rx#:[id number] cefTRIAXone 1 gm In 50 Sodium Chloride 0.9% 50 ml @ 100 mls/hr IVPB Q24HR [facility] Rx#:[id number] Intake, IV Titration 450 Amount Sodium Chloride 0.9% 1, 450 000 ml @ 75 mls/hr IV . [id number] [facility] Rx#:[id number] Oral 120 600 Other: Voiding Method Toilet Toilet Toilet # Voids 1 1 300 Weight 97.8 kg 01/17/20 08:13 01/17/20 08:13
--- NOTE | 2020-01-17 15:42 | PN ---
PROGRESS NOTE DATE OF SERVICE: 01/17/2020 This 69-year-old woman who was admitted with bilateral acute pneumonia and COVID-19 pneumonia, also had acute hypoxic respiratory failure. The patient has no shortness of breath at this time. The patient is started on Remdesivir per the protocol and Dr. Parisi. No chest pain. No palpitation. Past medical history reviewed. REVIEW OF SYSTEMS: Cardiovascular system as mentioned. Respiratory: As mentioned earlier. GI no nausea. : No dysuria. NERVOUS SYSTEM: No numbness or weakness. CURRENT MEDICATIONS: Reviewed and include: 1. Tylenol p.r.n. 2. Tylenol No.3. 3. Ventolin. 4. Norvasc. 5. Vitamin C. 6. Tenormin. 7. Tessalon. 8. Lovenox. 9. Vitamin D2. 10.Pepcid. 11.Lasix. 12.Apresoline. 13.Imdur. 14.Zestril. 15.Magnesium oxide. 16.Remdesivir. 17.Protonix. 18.Zoloft. 19.Spiriva. 20.doses noted. PHYSICAL EXAM: Patient is alert, oriented x3. Pulse 93, blood pressure is 149/70, respiration 26, temperature 97.7, pulse ox 91 percent on 4 L. HEENT: Conjunctivae normal. Oral mucosa moist. NECK is no jugular venous distention. No carotid bruit. No lymph node enlargement. Cardiovascular: S1, S2 muffled. Respiration: Breath sounds diminished in the bases. Bilateral scattered rhonchi and crackles. ABDOMEN: Soft, nontender. LEGS are no edema. No swelling. NERVOUS SYSTEM: No focal deficits. LABORATORY DATA: CBC within normal limits. Sodium 139. AST 60 and ALT is 37. Albumin is 3.4. ASSESSMENT: 1. Acute bilateral pneumonia with acute hypoxic respiratory failure possibly secondary to Covid-19 pneumonia. 2. Chronic obstructive pulmonary disease acute exacerbation. 3. Leukopenia. 4. Elevated D-dimer. 5. Elevated ferritin. 6. Increased AST. 7. Increased LDH and C-reactive protein. 8. History of chronic obstructive pulmonary disease. 9. Hypertension. 10.Supraventricular tachycardia. 11.Left leg pain and numbness and spasm history. 12.History of pulmonary hypertension. 13.History of nerve stimulator in the back. 14.History of degenerative joint disease. 15.History of anxiety. 16.Obesity with body mass index of 37.2. 17.Remote history of nicotine dependence. 18.FULL CODE. RECOMMENDATIONS AND DISCUSSION: This 69-year-old woman who presented with multiple complex medical issues, we will monitor the patient closely, continue the current medications, management and symptomatic treatment. Otherwise at this time, I recommend continue the bronchodilators. Continue with Remdesivir. Continue the rest of the medications. Consider chloroquine. Otherwise, closely follow with Infectious Disease and Pulmonary. Guarded prognosis. Further recommendations to follow. MMODL / IJN: [id number] / MTDD
[2020-01-17] MEDS: [UNRECOGNIZED DRUG - OTHER] IV SCH (17:05)
[2020-01-17] MEDS: SODIUM CHLORIDE 0.9% IV SCH (17:05)
[2020-01-17] MEDS ORDERED: lisinopriL 10 MG TAB PO STA (17:09)
[2020-01-17] MEDS: BENZONATATE 100 MG CAP PO PRN (19:46)
[2020-01-17] MEDS: ACETAMINOPHEN TAB 325 MG TAB PO PRN (19:46)
[2020-01-17] MEDS: PANTOPRAZOLE 40 MG TABLET PO SCH (21:39)
[2020-01-17] MEDS: MAGNESIUM OXIDE 400 MG TAB PO SCH (21:39)
--- NOTE | 2020-01-18 | PN ---
PROGRESS NOTE DATE OF SERVICE: 01/17/2020 REASON FOR FOLLOWUP: Acute COVID-19 pneumonia. INTERVAL HISTORY: The patient is currently afebrile. The patient is still complaining of increasing shortness of breath. She did have a cough and is bringing up some sputum. Not sure about the color. No nausea, no vomiting, no abdominal pain, no diarrhea. The patient was hypoxic this morning 84% on 3 L, however, is currently around 91% on 4 L nasal cannula and is tachypneic. PHYSICAL EXAMINATION: Blood pressure 149/72 with a pulse of 93, temperature 97.7. She is 91% on 4 L nasal cannula. General description is an elderly female lying in bed in no distress. RESPIRATORY SYSTEM: Unlabored breathing, decreased breath sounds at the bases. No wheeze. HEART: S1, S2. Regular rate and rhythm. ABDOMEN: Soft, no tenderness. LABS: Hemoglobin 13.4, white count 6.7, BUN of 18, creatinine 0.73. Liver enzymes are elevated. LDH elevated. DIAGNOSTIC IMPRESSION AND PLAN: Patient with acute COVID-19 pneumonia for which the patient has been started on remdesivir day 2 out of 5 she will continue along with dexamethasone, Lovenox and zinc, respiratory support and droplet isolation. Questions and concerns were answered. MMODL / IJN: [id number] /
[2020-01-18 06:16] LABS: Basophils % (A) 0 %; Eosinophils % (A) 1 %; HCT 39.7 % (34.0-46.0); HGB 12.8 gm/dL (11.4-16.0); Lymphocytes # (A) 0.5 k/uL (1.0-4.8); Lymphocytes % (A) 9 %; MCH 30.5 pg (25.0-35.0); MCHC 32.1 g/dL (31.0-37.0); MCV 94.8 fL (80.0-100.0); Mean Platelet Volume 7.6; Monocytes # (A) 0.4 k/uL (0-1.0); Monocytes % (A) 8 %; Neutrophils # (A) 4.1 k/uL (1.3-7.7); Neutrophils % (A) 80 %; Platelet Count 262 k/uL (150-450); RBC 4.19 m/uL (3.80-5.40); RDW 13.9 % (11.5-15.5); WBC 5.2 k/uL (3.8-10.6)
[2020-01-18 06:26] LABS: Albumin 3.2 g/dL (3.5-5.0); Calcium 8.5 mg/dL (8.4-10.2); Potassium 3.8 mmol/L (3.5-5.1); Total Bilirubin 0.4 mg/dL (0.2-1.3); Total Protein 5.9 g/dL (6.3-8.2)
[2020-01-18] MEDS: SODIUM CHLORIDE 0.9% 1,000 ML IV SCH (06:27)
[2020-01-18 07:08] LABS: C Reactive Protein 130.2 mg/L (<10.0)
[2020-01-18] MEDS: TIOTROPIUM 18 MCG/PUFF INHALER INHALATION SCH ×2 (08:11→11:06)
[2020-01-18] MEDS: SYMBICORT 160-4.5 MCG INHALER INHALATION SCH ×2 (08:11→21:47)
[2020-01-18] MEDS: ALBUTEROL HFA INHALER INHALATION SCH ×4 (08:11→21:47)
[2020-01-18] MEDS: ENOXAPARIN 40 MG/0.4 ML SYRINGE SQ SCH (08:55)
[2020-01-18] MEDS: dexAMETHasone 4 MG TAB PO SCH (08:56)
[2020-01-18] MEDS: ZINC SULFATE 220 MG CAP PO SCH (08:56)
[2020-01-18] MEDS: lisinopriL 20 MG TAB PO SCH (08:56)
[2020-01-18] MEDS: PANTOPRAZOLE 40 MG TABLET PO SCH ×2 (08:56→21:14)
[2020-01-18] MEDS: SERTRALINE 50 MG TAB PO SCH (08:56)
[2020-01-18] MEDS: ISOSORBIDE MONONITRATE ER 30 MG TAB.ER.24H PO SCH (08:56)
[2020-01-18] MEDS: FUROSEMIDE 40 MG TAB PO SCH (08:56)
[2020-01-18] MEDS: atenoloL 50 MG TAB PO SCH (08:56)
[2020-01-18] MEDS: hydrALAZINE HCL 50 MG TAB PO SCH ×3 (08:56→21:14)
[2020-01-18] MEDS: amLODIPine 10 MG TAB PO SCH (08:56)
[2020-01-18] MEDS: FAMOTIDINE 20 MG TAB PO SCH ×2 (08:56→21:14)
[2020-01-18] MEDS: ASCORBIC ACID 500 MG TAB PO SCH (08:57)
--- NOTE | 2020-01-18 10:52 | ECHOF ---
Referral Reason:lv fxn MEASUREMENTS -------- HEIGHT: 160.0 cm WEIGHT: 97.5 kg BP: IVSd: 1.0 cm (0.6 - 1.1) LVIDd: 4.0 cm (3.9 - 5.3) LVPWd: 1.2 cm (0.6 - 1.1) IVSs: 1.5 cm LVIDs: 2.6 cm LVPWs: 1.5 cm LA Diam: 4.0 cm (2.7 - 3.8) RVIDd: 2.7 cm (< 3.3) Ao Diam: 3.5 cm (2.0 - 3.7) LA Diam: 3.8 cm (2.7 - 3.8) EPSS: 0.2 cm MV E Jian: 0.82 m/s MV DecT: 278 ms MV A Jian: 0.99 m/s MV E/A Ratio: 0.83 RAP: 5.00 mmHg RVSP: 16.07 mmHg MV EF SLOPE: 81.30 mm/s (70 - 150) MV EXCURSION: 23.89 mm (> 18.000) FINDINGS -------- Sinus rhythm. This was a technically good study. LV size, wall thickness and systolic function are normal, with an EF greater than 55%. The left german tricular size is normal. The right ventricle is normal in size. The left atrial size is normal. The right atrial size is normal. The aortic valve is trileaflet, and appears structurally normal. No aortic stenosis or regurgitation. Mild mitral regurgitation is present. Mild tricuspid regurgitation present. Right ventricular systolic pressure is normal at < 35 mmHg. There is no pulmonic regurgitation present. The aortic root size is normal. There is no pericardial effusion. CONCLUSIONS -------- 1. LV size, wall thickness and systolic function are normal, with an EF greater than 55%. 2. The left ventricular size is normal. 3. The right ventricle is normal in size. 4. The left atrial size is normal. 5. The right atrial size is normal. 6. Mild mitral regurgitation is present. 7. Mild tricuspid regurgitation present. DIGITAL EXPERIENCE MANAGER: Soila Buckner RDCS
--- NOTE | 2020-01-18 12:02 | P.PN ---
Progress Note - Text Progress Note Date: 01/18/20 This is a 69-year-old female patient with history of hypertension who was admitted to the hospital after she was tested positive for COVID-19 and after she was experiencing symptoms of fever as well as shortness of breath. We involved in the care of the patient because off hypertension emergency treatment. The blood pressure seems to be better controlled on the current medical regimen. She underwent an echocardiogram and will follow-up with that.
--- NOTE | 2020-01-18 15:26 | P.PN ---
Subjective Progress Note Date: 01/18/20 Principal diagnosis: COVID 19 pneumonitis On 01/18/2020 patient seen in follow-up on selective care unit. She is currently being treated for Covid 19 related pneumonitis, currently on 4 L of oxygen her pulse ox is 94%, she is afebrile, she normally wears home oxygen, 2 L at home, currently is up to 4, however clinically she is improving, she is coughing less. Still feels very short of breath especially with any exertion. She is receiving a course of Remdesivir. ID service is following, he is also receiving oral dexamethasone, zinc, vitamin C, Lovenox at 40 mg every 24 hours, oral Pepcid. Today is day 8 after the onset of symptoms of Covid. Her echocardiogram showed LV size and wall thickness and systolic function within normal limits with any of greater than 55%, no aortic stenosis or regurgitation, mild MR, mild TR, no evidence of pulmonary hypertension. His labs have been reviewed, patient remains lymphopenic with lymphocyte count of 0.5, the rest of the CBC was within normal limits, d-dimer 0.67, electrolytes were within normal and sclerae B1 is 23, creatinine 0.84, LDH remains relatively stable at 807, CRP is trending down, down to 130.2, pro-calcitonin level came back at intermediate range is 0.12. Urinalysis is negative for any sign of infection. Objective - Vital Signs Vital signs: Vital Signs Temp 98.5 F 01/18/20 11:43 Pulse 67 01/18/20 11:43 Resp 16 01/18/20 11:43 BP 139/61 01/18/20 11:43 Pulse Ox 92 L 01/18/20 11:43 Intake & Output 01/17/20 01/18/20 01/18/20 18:59 06:59 18:59 Intake Total 2420 Output Total 625 Balance 1795 Weight 97 kg Intake: IV 620 Invasive Line 4 20 Sodium Chloride 0.9% 1, 600 000 ml @ 75 mls/hr IV . [id number] [facility] Rx#:[id number] Oral 1800 Output: Urine 625 Other: Voiding Method Toilet Toilet Toilet # Voids 300 2 1 - Exam GENERAL EXAM: Alert, very pleasant, 69-year-old female on 4 L of oxygen the pulse ox 92% comfortable in no apparent distress. HEAD: Normocephalic/atraumatic. EYES: Normal reaction of pupils, equal size. Conjunctiva pink, sclera white. NOSE: Clear with pink turbinates. THROAT: No erythema or exudates. NECK: No masses, no JVD, no thyroid enlargement, no adenopathy. CHEST: No chest wall deformity. Symmetrical expansion. LUNGS: Equal air entry with no crackles, wheeze, rhonchi or dullness. CVS: Regular rate and rhythm, normal S1 and S2, no gallops, no murmurs, no rubs ABDOMEN: Soft, nontender. No hepatosplenomegaly, normal bowel sounds, no guarding or rigidity. EXTREMITIES: No clubbing, no edema, no cyanosis, 2+ pulses and upper and lower extremities. MUSCULOSKELETAL: Muscle strength and tone normal. SPINE: No scoliosis or deformity SKIN: No rashes CENTRAL NERVOUS SYSTEM: Alert and oriented -3. No focal deficits, tone is normal in all 4 extremities. PSYCHIATRIC: Alert and oriented -3. Appropriate affect. Intact judgment and insight. - Labs CBC & Chem 7: 01/18/20 06:02 01/18/20 06:02 Labs: Abnormal Lab Results - Last 24 Hours (Table) 01/17/20 01/18/20 01/18/20 Range/Units 08:13 06:02 06:02 Lymphocytes # 0.5 L (1.0-4.8) k/uL D-Dimer (<0.60) mg/L FEU BUN 23 H (7-17) mg/dL Glucose 101 H (74-99) mg/dL AST 48 H (14-36) U/L Lactate Dehydrogenase 807 H (313-618) U/L C-Reactive Protein 130.2 H (<10.0) mg/L Total Protein 5.9 L (6.3-8.2) g/dL Albumin 3.2 L (3.5-5.0) g/dL Procalcitonin 0.12 H (0.02-0.09) ng/mL 01/18/20 Range/Units 06:02 Lymphocytes # (1.0-4.8) k/uL D-Dimer 0.67 H (<0.60) mg/L FEU BUN (7-17) mg/dL Glucose (74-99) mg/dL AST (14-36) U/L Lactate Dehydrogenase (313-618) U/L C-Reactive Protein (<10.0) mg/L Total Protein (6.3-8.2) g/dL Albumin (3.5-5.0) g/dL Procalcitonin (0.02-0.09) ng/mL Microbiology - Last 24 Hours (Table) 01/17/20 08:13 Blood Culture - Preliminary Blood No Growth after 24 hours Assessment and Plan Plan: Assessment: #1. Acute on chronic hypoxemic respiratory failure secondary to COVID 19 related to pneumonitis #2. Acute exacerbation of chronic obstructive pulmonary disease secondary to the above #3. Elevated inflammatory markers related to acute COVID 19 infection #4. Chronic tobacco dependence #5. Hypertensive emergency, resolved, echocardiogram showed normal LV size and function and ejection fraction Plan: Continue with current medical treatment, patient is receiving a course of Remdesivir, continue oral Decadron, prophylactic doses of Lovenox. Continue following inflammatory markers, CK, LDH and CRP. Ferritin every other day, continue monitoring oxygenation and worsening dyspnea. Monitor febrile pattern, patient has been afebrile. We'll continue to follow I performed a history & physical examination of the patient and discussed their management with my nurse practitioner, Kim Atkinson. I reviewed the nurse practitioner's note and agree with the documented findings and plan of care. Lung sounds are positive for diminished breath sounds. The findings and the impression was discussed with the patient. I attest to the documentation by the nurse practitioner. Time with Patient: Less than 30
--- NOTE | 2020-01-18 16:50 | PN ---
PROGRESS NOTE DATE OF SERVICE: 01/18/2020 This 69-year-old woman who was admitted with the COVID-19 pneumonia is being closely monitored. Patient was started on remdesivir. The patient was evaluated by multiple consultants. A 2D echo with Doppler showed normal ejection fraction. Lab-fay, sodium is 137. D-dimer is 0.67 and LDH is elevated at 807 and C-reactive protein is 130. It was 210 at the time of admission. The patient is being closely monitored. Past medical history reviewed. REVIEW OF SYSTEMS: CARDIOVASCULAR SYSTEM: No angina, palpitations. RESPIRATORY SYSTEM: As mentioned earlier. GI: As mentioned earlier. : No dysuria or retention. NERVOUS SYSTEM: No numbness, weakness. CURRENT MEDICATIONS: Reviewed. They include: 1. Tylenol p.r.n. 2. Tylenol #3. 3. Ventolin. 4. Norvasc. 5. Vitamin C. 6. Tenormin. 7. Tessalon. 8. Symbicort 160/4.5. 9. Hexadrol. 10.Lovenox. 11.Vitamin D2. 12.Pepcid. 13.Lasix. 14.Apresoline. 15.Imdur. 16.Magnesium oxide. Doses are reviewed. PHYSICAL EXAMINATION: Patient is alert and oriented x3. Pulse is 67, blood pressure 139/61, respirations 16, temperature 98.5, pulse ox 92% on 4 L. HEENT: Conjunctivae normal. Oral mucosa moist. NECK: No jugular venous distention. No carotid bruit. No lymph node enlargement. CARDIOVASCULAR SYSTEM: S1, S2 muffled. RESPIRATORY SYSTEM: Breath sounds diminished at the bases. A few scattered rhonchi and crackles. Expiratory wheezing also present. ABDOMEN: Soft, non-tender. LEGS: No edema. No swelling. NERVOUS SYSTEM: No focal deficit. LABS: CBC within normal limits. D-dimer is 0.67. Sodium 137. Other labs are noted. Procalcitonin 0.12. ASSESSMENT: 1. Acute bilateral pneumonia with acute hypoxic respiratory failure secondary to COVID- 19 pneumonia. 2. Chronic obstructive pulmonary disease, acute exacerbation. 3. Leukopenia. 4. Elevated D-dimer. 5. Elevated ferritin. 6. Elevated AST. 7. Increased LDH and C-reactive protein. 8. History of chronic obstructive pulmonary disease. 9. Hypertension. 10.History of supraventricular tachycardia. 11.History of left leg pain, numbness and spasm. 12.History of pulmonary hypertension. 13.History of nerve stimulator in the back. 14.History of degenerative joint disease. 15.History of anxiety. 16.Obesity with body mass index of 37.2. 17.Remote history of nicotine dependence. 18.FULL CODE. RECOMMENDATIONS AND DISCUSSION: I recommend to continue current medications, continue with the monitoring, symptomatic treatment. Continue with the bronchodilators. Continue with steroids. Continue with Lovenox. Continue with the rest of the medications. Continue with the remdesivir. Otherwise, the prognosis is guarded because of multiple complex medical issues. Further recommendations to follow. MMODL / IJN: [id number] /
[2020-01-18] MEDS: [UNRECOGNIZED DRUG - OTHER] IV SCH (16:56)
[2020-01-18] MEDS: SODIUM CHLORIDE 0.9% IV SCH (16:56)
[2020-01-18 17:49] LABS: Ferritin 446.3 ng/mL (10.0-291.0)
[2020-01-18] MEDS: ALPRAZolam 0.25 MG TAB PO PRN (18:44)
[2020-01-18] MEDS: MAGNESIUM OXIDE 400 MG TAB PO SCH (21:13)
--- NOTE | 2020-01-18 22:31 | PN ---
PROGRESS NOTE DATE OF SERVICE: 01/18/2020 REASON FOR FOLLOWUP: Acute COVID-19 pneumonia. INTERVAL HISTORY: The patient is currently afebrile. The patient has been complaining of feeling anxious anxiety. The patient denies having any chest pain. She did have some cough, though did not bring up any sputum. No nausea. No vomiting. No abdominal pain or diarrhea. PHYSICAL EXAMINATION: Blood pressure 115/56, pulse of 86, temperature 98.2. She is 90% on 4 L nasal cannula. General description is an elderly female in the room in no distress. RESPIRATORY SYSTEM: Unlabored breathing with decreased intensity of breath sounds. No wheeze. HEART: S1, S2. Regular rate and rhythm. R ABDOMEN: Soft. No tenderness. LABS: Hemoglobin is 12.8, white count 5.2, BUN of 23, creatinine 0.84. CRP down to 130. DIAGNOSTIC IMPRESSION AND PLAN: Patient with acute COVID-19 pneumonia, for which the patient is currently covered with remdesivir, day 3 out of 5; to continue along with dexamethasone, Lovenox and zinc along with respiratory support. Continue with supportive care. MMODL / IJN: [id number] /
[2020-01-19 06:41] LABS: Basophils # (A) 0.1 k/uL (0-0.2); Basophils % (A) 1 %; Eosinophils % (A) 0 %; HCT 39.6 % (34.0-46.0); HGB 12.5 gm/dL (11.4-16.0); Lymphocytes # (A) 0.5 k/uL (1.0-4.8); Lymphocytes % (A) 11 %; MCH 29.9 pg (25.0-35.0); MCHC 31.6 g/dL (31.0-37.0); MCV 94.6 fL (80.0-100.0); Monocytes # (A) 0.4 k/uL (0-1.0); Monocytes % (A) 9 %; Neutrophils # (A) 3.4 k/uL (1.3-7.7); Neutrophils % (A) 75 %; Platelet Count 303 k/uL (150-450); RBC 4.18 m/uL (3.80-5.40); RDW 13.8 % (11.5-15.5); WBC 4.5 k/uL (3.8-10.6)
[2020-01-19 06:51] LABS: Albumin 3.1 g/dL (3.5-5.0); Calcium 8.5 mg/dL (8.4-10.2); Total Bilirubin 0.5 mg/dL (0.2-1.3); Total Protein 5.6 g/dL (6.3-8.2)
[2020-01-19 07:02] LABS: Potassium 3.8 mmol/L (3.5-5.1)
[2020-01-19] MEDS: SYMBICORT 160-4.5 MCG INHALER INHALATION SCH ×2 (07:52→20:52)
[2020-01-19] MEDS: ALBUTEROL HFA INHALER INHALATION SCH ×3 (07:52→20:52)
[2020-01-19] MEDS: TIOTROPIUM 18 MCG/PUFF INHALER INHALATION SCH (07:52)
--- NOTE | 2020-01-19 07:56 | XR ---
EXAMINATION TYPE: XR chest 1V portable DATE OF EXAM: 01/19/2020 HISTORY: Shortness of breath. COMPARISON: January 17, 2020 TECHNIQUE: Single view of the chest is submitted. FINDINGS: Demonstrated are scattered senescent parenchymal change. Patchy basilar infiltrates persist. Overall appearance is improving. The heart is stable. Hilar and mediastinal structures are within normal limits. Degenerative changes are seen of the dorsal spine. IMPRESSION: 1. Patchy basilar infiltrates persist. Overall appearance is improving.
[2020-01-19] MEDS: SERTRALINE 50 MG TAB PO SCH (08:52)
[2020-01-19] MEDS: amLODIPine 10 MG TAB PO SCH (08:52)
[2020-01-19] MEDS: FAMOTIDINE 20 MG TAB PO SCH ×2 (08:52→20:12)
[2020-01-19] MEDS: atenoloL 50 MG TAB PO SCH (08:52)
[2020-01-19] MEDS: lisinopriL 20 MG TAB PO SCH (08:52)
[2020-01-19] MEDS: hydrALAZINE HCL 50 MG TAB PO SCH (08:52)
[2020-01-19] MEDS: PANTOPRAZOLE 40 MG TABLET PO SCH ×2 (08:52→20:12)
[2020-01-19] MEDS: ASCORBIC ACID 500 MG TAB PO SCH (08:52)
[2020-01-19] MEDS: ISOSORBIDE MONONITRATE ER 30 MG TAB.ER.24H PO SCH (08:52)
[2020-01-19] MEDS: FUROSEMIDE 40 MG TAB PO SCH (08:52)
[2020-01-19] MEDS: ERGOCALCIFEROL 50,000 UNIT CAP PO SCH (08:53)
[2020-01-19] MEDS: ZINC SULFATE 220 MG CAP PO SCH (08:53)
[2020-01-19] MEDS: dexAMETHasone 4 MG TAB PO SCH (08:53)
[2020-01-19] MEDS: ENOXAPARIN 40 MG/0.4 ML SYRINGE SQ SCH (08:53)
--- NOTE | 2020-01-19 11:51 | P.PN ---
Progress Note - Text Progress Note Date: 01/19/20 This is a 69-year-old female patient with history of hypertension who was admitted to the hospital after she was tested positive for COVID-19 and after she was experiencing symptoms of fever as well as shortness of breath. We involved in the care of the patient because off hypertension emergency treatment. The blood pressure today seems to be under excellent control on the current medical regimen. The echocardiogram revealed normal LV function without any significant valvular abnormalities. From the cardiovascular standpoint of view, we will continue the current medical regimen and follow-up with the patient on when necessary case
--- NOTE | 2020-01-19 13:36 | P.PN ---
Subjective Progress Note Date: 01/19/20 Principal diagnosis: COVID 19 pneumonitis On 01/18/2020 patient seen in follow-up on selective care unit. She is currently being treated for Covid 19 related pneumonitis, currently on 4 L of oxygen her pulse ox is 94%, she is afebrile, she normally wears home oxygen, 2 L at home, currently is up to 4, however clinically she is improving, she is coughing less. Still feels very short of breath especially with any exertion. She is receiving a course of Remdesivir. ID service is following, he is also receiving oral dexamethasone, zinc, vitamin C, Lovenox at 40 mg every 24 hours, oral Pepcid. Today is day 8 after the onset of symptoms of Covid. Her echocardiogram showed LV size and wall thickness and systolic function within normal limits with any of greater than 55%, no aortic stenosis or regurgitation, mild MR, mild TR, no evidence of pulmonary hypertension. His labs have been reviewed, patient remains lymphopenic with lymphocyte count of 0.5, the rest of the CBC was within normal limits, d-dimer 0.67, electrolytes were within normal and sclerae B1 is 23, creatinine 0.84, LDH remains relatively stable at 807, CRP is trending down, down to 130.2, pro-calcitonin level came back at intermediate range is 0.12. Urinalysis is negative for any sign of infection. On 01/19/2020 patient is seen in follow-up on selective care unit. She remains on 4 L of oxygen her pulse ox is 90%, she is in no acute distress, does get short of breath with exertion, cough, but seems to be comfortable at rest, afebrile, today she is receiving her fourth dose of Remdesivir. Afebrile. Today's follow-up chest x-ray still shows patchy basilar infiltrates, overall improving in appearance. CBC is within normal limits, however patient remains lymphopenic with lymphocyte count of 0.5, electrolytes within normal limits, BUN is 25 creatinine 0.88, due to is trending down down to 776 Objective - Vital Signs Vital signs: Vital Signs Temp 98.4 F 01/19/20 12:00 Pulse 59 L 01/19/20 12:00 Resp 18 01/19/20 12:00 BP 127/59 01/19/20 12:00 Pulse Ox 90 L 01/19/20 12:00 Intake & Output 01/18/20 01/19/20 01/19/20 18:59 06:59 18:59 Intake Total 120 Output Total 0 Balance 120 Weight 98 kg Intake: Oral 120 Output: Urine 0 Other: Voiding Method Toilet Toilet Toilet # Voids 2 1 1 - Exam GENERAL EXAM: Alert, very pleasant, 69-year-old female on 4 L of oxygen the pulse ox 90% comfortable in no apparent distress. HEAD: Normocephalic/atraumatic. EYES: Normal reaction of pupils, equal size. Conjunctiva pink, sclera white. NOSE: Clear with pink turbinates. THROAT: No erythema or exudates. NECK: No masses, no JVD, no thyroid enlargement, no adenopathy. CHEST: No chest wall deformity. Symmetrical expansion. LUNGS: Equal air entry with no crackles, wheeze, rhonchi or dullness. CVS: Regular rate and rhythm, normal S1 and S2, no gallops, no murmurs, no rubs ABDOMEN: Soft, nontender. No hepatosplenomegaly, normal bowel sounds, no guarding or rigidity. EXTREMITIES: No clubbing, no edema, no cyanosis, 2+ pulses and upper and lower extremities. MUSCULOSKELETAL: Muscle strength and tone normal. SPINE: No scoliosis or deformity SKIN: No rashes CENTRAL NERVOUS SYSTEM: Alert and oriented -3. No focal deficits, tone is normal in all 4 extremities. PSYCHIATRIC: Alert and oriented -3. Appropriate affect. Intact judgment and insight. - Labs CBC & Chem 7: 01/19/20 06:26 01/19/20 06:26 Labs: Abnormal Lab Results - Last 24 Hours (Table) 01/18/20 01/19/20 01/19/20 Range/Units 06:02 06:26 06:26 Lymphocytes # 0.5 L (1.0-4.8) k/uL BUN 25 H (7-17) mg/dL Ferritin 446.3 H (10.0-291.0) ng/mL AST 44 H (14-36) U/L Lactate Dehydrogenase 776 H (313-618) U/L Total Protein 5.6 L (6.3-8.2) g/dL Albumin 3.1 L (3.5-5.0) g/dL Microbiology - Last 24 Hours (Table) 01/17/20 08:13 Blood Culture - Preliminary Blood No Growth after 48 hours Assessment and Plan Plan: Assessment: #1. Acute on chronic hypoxemic respiratory failure secondary to COVID 19 related to pneumonitis #2. Acute exacerbation of chronic obstructive pulmonary disease secondary to the above #3. Elevated inflammatory markers related to acute COVID 19 infection #4. Chronic tobacco dependence #5. Hypertensive emergency, resolved, echocardiogram showed normal LV size and function and ejection fraction Plan: Continue current medical treatment, patient remains on Remdesivir, she will complete the course tomorrow, no worsening dyspnea, she does have some exertional dyspnea and some occasional cough, overall feeling better, today's chest x-ray has been reviewed showing improving bilateral infiltrates, no fever or chills, hemodynamically patient is stable, no nausea vomiting diarrhea, we'll continue to follow. I performed a history & physical examination of the patient and discussed their management with my nurse practitioner, Kim Atkinson. I reviewed the nurse practitioner's note and agree with the documented findings and plan of care. Lung sounds are positive for diminished breath sounds. The findings and the impression was discussed with the patient. I attest to the documentation by the nurse practitioner. Time with Patient: Less than 30
[2020-01-19] MEDS: [UNRECOGNIZED DRUG - OTHER] IV SCH (16:11)
[2020-01-19] MEDS: SODIUM CHLORIDE 0.9% IV SCH (16:11)
[2020-01-19] MEDS: LEVOFLOXACIN 750 MG TAB PO SCH (16:12)
--- NOTE | 2020-01-19 16:55 | PN ---
PROGRESS NOTE DATE OF SERVICE: 01/19/2020 REASON FOR FOLLOWUP: Acute COVID-19 pneumonia. INTERVAL HISTORY: The patient is currently afebrile. The patient is breathing more comfortably. The patient's cough has decreased in intensity. She is still bringing up some sputum, though. No chest pain. No abdominal pain and no diarrhea. PHYSICAL EXAMINATION: Blood pressure 127/59 with a pulse of 59, temperature 98.4. She is 90% on 4 L nasal cannula. General description is an elderly female lying in bed in no distress. RESPIRATORY SYSTEM: Unlabored breathing. Rest of the examination is deferred. LABS: Hemoglobin is 12.5, white count 4.5, BUN of 25, creatinine 0.88. The LDH is currently down and the CRP is down, too. Patient did have mildly elevated . DIAGNOSTIC IMPRESSION AND PLAN: Patient admitted to hospital with acute COVID-19 pneumonia, currently on remdesivir. She will continue to finish her 5-day course of therapy. Continue with the dexamethasone, Lovenox will add oral Levaquin and monitor her clinical course closely. Questions and concerns have been answered. Continue with droplet isolation and respiratory support. MMODL / IJN: [id number] /
--- NOTE | 2020-01-19 17:16 | PN ---
PROGRESS NOTE DATE OF SERVICE: 01/19/2020 This 69-year-old woman was admitted with COVID-19 bilateral pneumonia is being closely monitored. Patient had acute hypoxic respiratory failure. The most recent chest x-ray which was done today and was reviewed by me showed bilateral interstitial shadows, mainly concentrated in the lower lobe. Patient is on remdesivir and Infectious Disease is following the patient closely. Past medical history reviewed. REVIEW OF SYSTEMS: CARDIOVASCULAR SYSTEM: No angina, palpitations. RESPIRATORY SYSTEM: As mentioned earlier. GI: As mentioned earlier. : No dysuria or retention. NERVOUS SYSTEM: No numbness, weakness. CURRENT MEDICATIONS: Reviewed. They include: 1. Tylenol p.r.n. 2. Tylenol #3. 3. Ventolin HFA. 4. Xanax. 5. Norvasc. 6. Vitamin C. 7. Tessalon Perles. 8. Symbicort b.i.d. 9. Hexadrol. 10.Lovenox. 11.Pepcid. 12.Lasix. 13.Apresoline. 14.Imdur. 15.Levaquin. 16.Zestril. 17.Magnesium oxide. 18.Remdesivir. 19.Spiriva. 20.Orazinc. PHYSICAL EXAMINATION: Patient is alert, oriented x3. The pulse is 59, blood pressure 127/59, respiration 18, temperature 98.4, pulse ox 90% on 4 L. HEENT: Conjunctivae normal. Oral mucosa moist. NECK: No jugular venous distention. No carotid bruit. No lymph node enlargement. CARDIOVASCULAR SYSTEM: S1, S2 muffled. RESPIRATORY SYSTEM: Breath sounds diminished at the bases. A few scattered rhonchi and crackles. ABDOMEN: Soft, non-tender. No mass palpable. LEGS: No edema. No swelling. NERVOUS SYSTEM: Higher functions as mentioned earlier. Moves all 4 limbs. No focal motor or sensory deficit. LYMPHATICS: No lymph node palpable in neck, axillae or groin. SKIN: No ulcer, rash, bleeding. LABS: WBC 4.5, hemoglobin 12.5. Sodium 141. Other labs are noted. ASSESSMENT: 1. Acute bilateral pneumonia with acute hypoxic respiratory failure secondary to bilateral interstitial viral pneumonia secondary to COVID-19 pneumonia. 2. Chronic obstructive pulmonary disease, acute exacerbation. 3. Leukopenia, improved. 4. Elevated D-dimer. 5. Elevated ferritin. 6. Increased AST. 7. Increased LDH and C-reactive protein due to COVID-19. 8. History of chronic obstructive pulmonary disease. 9. Hypertension. 10.History of supraventricular tachycardia. 11.History of left leg pain and numbness and spasm. 12.History of pulmonary hypertension. 13.History of nerve stimulator on the back. 14.History of degenerative joint disease. 15.History of anxiety. 16.Obesity with body mass index of 37.2. 17.Remote history of nicotine dependence. 18.FULL CODE. RECOMMENDATIONS AND DISCUSSION: I recommend to continue current medications, continue with the monitoring, symptomatic treatment. Otherwise at this time continue with the remdesivir. Continue with the bronchodilators and steroids. Continue with Lovenox. Continue the rest of the medications. Prognosis guarded. Further recommendations to follow. MMGUIL / DEONN: [id number] /
[2020-01-19] MEDS: hydrALAZINE HCL 25 MG TAB PO SCH (18:01)
[2020-01-19] MEDS: SODIUM CHLORIDE 0.9% 1,000 ML IV SCH (18:57)
[2020-01-19] MEDS: MAGNESIUM OXIDE 400 MG TAB PO SCH (20:12)
[2020-01-20] MEDS: ALPRAZolam 0.25 MG TAB PO PRN (00:14)
[2020-01-20] MEDS: hydrALAZINE HCL 25 MG TAB PO SCH ×4 (00:26→21:06)
[2020-01-20] MEDS: hydrALAZINE HCL 50 MG TAB PO SCH (01:34)
[2020-01-20] MEDS: SODIUM CHLORIDE 0.9% 1,000 ML IV SCH ×2 (01:35→09:46)
--- NOTE | 2020-01-20 07:29 | XR ---
EXAMINATION TYPE: XR chest 1V portable DATE OF EXAM: 01/20/2020 COMPARISON: 01/19/2020 INDICATION: Short of breath TECHNIQUE: Single frontal view of the chest is obtained. FINDINGS: The heart size is normal. The pulmonary vasculature is normal. Opacity is present in the left midlung. Left lower lung field infiltrate is improving. Mild right inf rahilar infiltrate is present. IMPRESSION: 1. Continued bibasilar infiltrates. Continued follow-up is recommended
[2020-01-20] MEDS: ALBUTEROL HFA INHALER INHALATION SCH ×3 (08:04→18:56)
[2020-01-20] MEDS: TIOTROPIUM 18 MCG/PUFF INHALER INHALATION SCH (08:04)
[2020-01-20] MEDS: SYMBICORT 160-4.5 MCG INHALER INHALATION SCH ×2 (08:04→18:56)
[2020-01-20 09:25] LABS: C Reactive Protein 53.9 mg/L (<10.0)
[2020-01-20] MEDS: amLODIPine 10 MG TAB PO SCH (09:44)
[2020-01-20] MEDS: ENOXAPARIN 40 MG/0.4 ML SYRINGE SQ SCH (09:44)
[2020-01-20] MEDS: atenoloL 50 MG TAB PO SCH (09:44)
[2020-01-20] MEDS: ASCORBIC ACID 500 MG TAB PO SCH (09:44)
[2020-01-20] MEDS: dexAMETHasone 4 MG TAB PO SCH (09:45)
[2020-01-20] MEDS: FUROSEMIDE 40 MG TAB PO SCH (09:45)
[2020-01-20] MEDS: FAMOTIDINE 20 MG TAB PO SCH ×2 (09:45→21:06)
[2020-01-20] MEDS: lisinopriL 20 MG TAB PO SCH (09:46)
[2020-01-20] MEDS: ISOSORBIDE MONONITRATE ER 30 MG TAB.ER.24H PO SCH (09:46)
[2020-01-20] MEDS: ZINC SULFATE 220 MG CAP PO SCH (09:46)
[2020-01-20] MEDS: LEVOFLOXACIN 750 MG TAB PO SCH (09:46)
[2020-01-20] MEDS: PANTOPRAZOLE 40 MG TABLET PO SCH ×2 (09:46→21:06)
[2020-01-20] MEDS: SERTRALINE 50 MG TAB PO SCH (09:46)
--- NOTE | 2020-01-20 13:23 | P.PN ---
Subjective Progress Note Date: 01/20/20 Principal diagnosis: CoVID 19 pneumonitis The patient is seen today 01/20/2020 in follow-up on the selective care unit. She is awake and alert in no acute distress. She is breathing quite a bit better today. She is feeling stronger each day as well. Chest x-ray shows continued bibasilar infiltrates. Left lower lung field infiltrate is improving. Blood and sputum cultures pending. D-dimer 0.88. C-reactive protein 53.9. She is due for her last dose of REM does severe today. She remains on dexamethasone and Lovenox. Antibiotics in the form of Levaquin. Objective - Vital Signs Vital signs: Vital Signs Temp 97.6 F 01/20/20 11:45 Pulse 57 L 01/20/20 11:45 Resp 18 01/20/20 11:45 BP 105/52 01/20/20 11:45 Pulse Ox 95 01/20/20 11:45 Intake & Output 01/19/20 01/20/20 01/20/20 18:59 06:59 18:59 Intake Total 600 Output Total 0 Balance 600 Intake: Oral 600 Output: Urine 0 Other: Voiding Method Toilet Toilet Toilet # Voids 2 1 1 - Exam GENERAL EXAM: Alert, very pleasant 69-year-old female patient, on 3 L/m per nasal cannula with O2 saturation in low 90s, dyspneic with minimal exertion HEAD: Normocephalic. EYES: Normal reaction of pupils, equal size. NOSE: Clear with pink turbinates. THROAT: No erythema or exudates. NECK: No masses, no JVD. CHEST: No chest wall deformity. LUNGS: Equal air entry with few scattered rhonchi and crackles in the posterior bases. Diminished CVS: S1 and S2 normal with no audible murmur, regular rhythm. ABDOMEN: No hepatosplenomegaly, normal bowel sounds, no guarding or rigidity. SPINE: No scoliosis or deformity SKIN: No rashes CENTRAL NERVOUS SYSTEM: No focal deficits, tone is normal in all 4 extremities. EXTREMITIES: There is no peripheral edema. No clubbing, no cyanosis. Peripheral pulses are intact. - Labs CBC & Chem 7: 01/19/20 06:26 01/19/20 06:26 Labs: Abnormal Lab Results - Last 24 Hours (Table) 01/20/20 01/20/20 Range/Units 07:36 07:36 D-Dimer 0.88 H (<0.60) mg/L FEU C-Reactive Protein 53.9 H (<10.0) mg/L Microbiology - Last 24 Hours (Table) 01/17/20 08:13 Blood Culture - Preliminary Blood No Growth after 72 hours 01/19/20 21:10 Gram Stain - Preliminary Sputum Sputum Culture - Preliminary Assessment and Plan Assessment: 1 Acute on chronic hypoxemic respiratory failure secondary to CoVID 19 pneumonitis 2 Acute exacerbation of chronic obstructive pulmonary disease secondary to above 3 Elevated inflammatory markers secondary to Covid 19 infection 4 Chronic tobacco dependence 5 Hypertension Plan: The patient was seen and evaluated by Dr. Fowler Chest x-ray and labs reviewed She is currently on Remdesivir, Decadron, vitamin C and zinc Titrate down the FiO2 as tolerated Continue isolation precautions Probable discharge in the a.m. We will continue to follow make further recommendations based on her clinical status I, the cosigning physician, performed a history & physical examination of the patient. Lungs sounds few scattered rhonchi, crackles in the posterior bases. Maintaining good O2 saturations in the 90s on 3 L/m per nasal cannula. I discussed the assessment and plan of care with my nurse practitioner, Gladys Mannnig. I attest to the above note as dictated by her.
[2020-01-20 16:24] LABS: Ferritin 483.2 ng/mL (10.0-291.0)
[2020-01-20] MEDS: [UNRECOGNIZED DRUG - OTHER] IV SCH (18:05)
[2020-01-20] MEDS: SODIUM CHLORIDE 0.9% IV SCH (18:05)
[2020-01-20] MEDS: MAGNESIUM OXIDE 400 MG TAB PO SCH (21:06)
--- NOTE | 2020-01-20 21:14 | PN ---
PROGRESS NOTE DATE OF SERVICE: 01/20/2020 This 69-year-old woman is admitted with Covid-19 pneumonia as well as bilateral aspiration is being closely monitored at this time. The most recent chest x-ray which was reviewed personally by me showed persistent infiltrates. The patient's pulse ox is being maintained. No chest pain or palpitation. PHYSICAL EXAMINATION: Alert and oriented times three. Pulse 64, blood pressure 95/42, respiration 18, temp 98.4, pulse ox 94% on 3 L. HEENT: Conjunctivae normal. NECK: No JVD. CARDIOVASCULAR: S1, S2 muffled. RESPIRATORY: Breath sounds diminished in the bases. A few scattered rhonchi and crackles. ABDOMEN soft, nontender. Legs: No edema, no swelling. NERVOUS SYSTEM: No focal deficits. LABS: D-dimer is 0.88 and ferritin is 482. C-reactive protein is 53.9. ASSESSMENT: 1. Acute bilateral pneumonia with acute hypoxic respiratory failure secondary to bilateral interstitial pneumonia secondary to Covid-19 pneumonia. 2. Chronic obstructive pulmonary disease, acute exacerbation. 3. Leukopenia, improved. 4. Elevated D-dimer. 5. Elevated ferritin. 6. Increased AST. 7. Increased LDH and C-reactive protein due to Covid-19. 8. History of chronic obstructive pulmonary disease. 9. Hypertension,. 10.Supraventricular tachycardia. 11.History of left leg pain and numbness and spasm. 12.History of pulmonary hypertension. 13.History of nerve stimulator on the back. 14.History of degenerative joint disease. 15.History of anxiety. 16.Obesity with body mass index of 37.2. 17.History of nicotine dependence. 18.FULL CODE. RECOMMENDATIONS AND DISCUSSION: I recommend to continue current medications, monitoring and symptomatic treatment. Otherwise at this time I recommend continue with and continue with rest of bronchodilators. Ensure oxygenation. Guarded prognosis because of multiple complex medical issues. Further recommendations to follow. MMODL / IJN: [id number] / [facility]
--- NOTE | 2020-01-20 21:51 | PN ---
PROGRESS NOTE DATE OF SERVICE: 01/20/2020 REASON FOR FOLLOWUP: Acute COVID-19 pneumonia. INTERVAL HISTORY: Patient is currently afebrile. The patient is breathing comfortably. The patient is down to 3 L nasal cannula. Denies having any chest pain or shortness of breath. Minimal cough. No nausea, no vomiting. No abdominal pain. No diarrhea. PHYSICAL EXAMINATION: Blood pressure is 95/40 with a pulse of 64, temperature 98.2. She is 94% on 3 L. General description is an elderly female up in the bed in no distress. Respiratory system: Unlabored breathing. No respiratory distress was noticed. Rest of the exam deferred. LABS: Hemoglobin is 12.5, white count 4.5, BUN of 25, creatinine 0.88. Ferritin slightly elevated. CRP is down to 53.9. Sputum culture is pending. Chest x-ray, bibasilar infiltrate. DIAGNOSTIC IMPRESSION AND PLAN: Patient admitted to the hospital with pneumonia likely secondary to acute Covid-19. Did have elevated and Levaquin was added. The patient seemed to have shown overall clinical improvement. Will finish her therapy as of today. Continue with the Lovenox and Dexamethasone and Levaquin. Monitor her clinical course closely. MMODL / IJN: [id number] /
[2020-01-21 00:06] VITALS: RESP 18
[2020-01-21] MEDS: SODIUM CHLORIDE 0.9% 1,000 ML IV SCH ×2 (02:31→15:21)
[2020-01-21 07:53] LABS: Potassium 3.7 mmol/L (3.5-5.1)
[2020-01-21 07:54] LABS: Albumin 2.9 g/dL (3.5-5.0); Calcium 8.6 mg/dL (8.4-10.2); Total Bilirubin 0.4 mg/dL (0.2-1.3); Total Protein 5.5 g/dL (6.3-8.2)
[2020-01-21 08:18] LABS: HCT 43.4 % (34.0-46.0); HGB 13.9 gm/dL (11.4-16.0); MCH 30.9 pg (25.0-35.0); MCHC 32.1 g/dL (31.0-37.0); MCV 96.3 fL (80.0-100.0); Mean Platelet Volume 7.8; Platelet Count 336 k/uL (150-450); RDW 13.9 % (11.5-15.5); WBC 6.3 k/uL (3.8-10.6)
[2020-01-21] MEDS: SYMBICORT 160-4.5 MCG INHALER INHALATION SCH (08:48)
[2020-01-21] MEDS: TIOTROPIUM 18 MCG/PUFF INHALER INHALATION SCH (08:48)
[2020-01-21] MEDS: ALBUTEROL HFA INHALER INHALATION SCH ×2 (08:48→12:02)
[2020-01-21 09:08] LABS: Metamyelocytes # (M) 0.13 k/uL (0); Metamyelocytes % 2 %; Monocytes # (M) 0.44 k/uL (0-1.0); Myelocytes # (M) 0.19 k/uL (0); Myelocytes % 3 %; Neutrophils # (M) 5.17 k/uL (1.3-7.7); Neutrophils % (M) 82 %; Nucleated Red Blood Cells 0 /100 WBC (0-0); Total Cells Counted 200
[2020-01-21 09:09] LABS: Anisocytosis (M) Present; Poikilocytosis (M) Present; Toxic Granulation Present
[2020-01-21] MEDS: FAMOTIDINE 20 MG TAB PO SCH (10:04)
[2020-01-21] MEDS: FUROSEMIDE 40 MG TAB PO SCH (10:04)
[2020-01-21] MEDS: ZINC SULFATE 220 MG CAP PO SCH (10:05)
[2020-01-21] MEDS: ISOSORBIDE MONONITRATE ER 30 MG TAB.ER.24H PO SCH (10:05)
[2020-01-21] MEDS: amLODIPine 10 MG TAB PO SCH (10:05)
[2020-01-21] MEDS: atenoloL 50 MG TAB PO SCH (10:05)
[2020-01-21] MEDS: ASCORBIC ACID 500 MG TAB PO SCH (10:05)
[2020-01-21] MEDS: SERTRALINE 50 MG TAB PO SCH (10:05)
[2020-01-21] MEDS: ENOXAPARIN 40 MG/0.4 ML SYRINGE SQ SCH (10:06)
[2020-01-21] MEDS: ERGOCALCIFEROL 50,000 UNIT CAP PO SCH (10:06)
[2020-01-21] MEDS: dexAMETHasone 4 MG TAB PO SCH (10:06)
[2020-01-21] MEDS: LEVOFLOXACIN 750 MG TAB PO SCH (10:07)
[2020-01-21] MEDS: PANTOPRAZOLE 40 MG TABLET PO SCH (10:07)
[2020-01-21 11:16] VITALS: BMI 36.4
--- NOTE | 2020-01-21 13:11 | P.PN ---
Subjective Progress Note Date: 01/21/20 69-year-old female patient diagnosed having covid 19 pneumonia treated with Remdesivir and oral Decadron. Doing well, no specific complaints. Less short of breath. No significant cough sputum production chest tightness or wheezing. No fever or chills. She completed the course of antiviral and she is also on oral Decadron. She'll be completing a ten-day course. No nausea. No vomiting. No diarrhea. No altered mentation. She is complaining of some generalized weakness. Objective - Vital Signs Vital signs: Vital Signs Temp 98.5 F 01/21/20 04:00 Pulse 59 L 01/21/20 04:00 Resp 18 01/21/20 04:00 BP 103/55 01/21/20 04:00 Pulse Ox 96 01/21/20 04:00 Intake & Output 01/20/20 01/21/20 01/21/20 18:59 06:59 18:59 Intake Total 462 240 Balance 462 240 Weight 93.4 kg 93.4 kg Intake: Oral 462 240 Other: Voiding Method Toilet Toilet # Voids 1 2 1 - Exam GENERAL EXAM: Alert, very pleasant 69-year-old female patient, on 3 L/m per nasal cannula with O2 saturation in low 90s, dyspneic with minimal exertion HEAD: Normocephalic. EYES: Normal reaction of pupils, equal size. NOSE: Clear with pink turbinates. THROAT: No erythema or exudates. NECK: No masses, no JVD. CHEST: No chest wall deformity. LUNGS: Equal air entry with few scattered rhonchi and crackles in the posterior bases. Diminished CVS: S1 and S2 normal with no audible murmur, regular rhythm. ABDOMEN: No hepatosplenomegaly, normal bowel sounds, no guarding or rigidity. SPINE: No scoliosis or deformity SKIN: No rashes CENTRAL NERVOUS SYSTEM: No focal deficits, tone is normal in all 4 extremities. EXTREMITIES: There is no peripheral edema. No clubbing, no cyanosis. Peripheral pulses are intact. - Labs CBC & Chem 7: 01/21/20 07:14 01/21/20 07:14 Labs: Abnormal Lab Results - Last 24 Hours (Table) 01/20/20 01/21/20 01/21/20 Range/Units 07:36 07:14 07:14 Lymphocytes # (Manual) 0.50 L (1.0-4.8) k/uL Metamyelocytes # (Man) 0.13 H (0) k/uL Myelocytes # (Manual) 0.19 H (0) k/uL Carbon Dioxide 31 H (22-30) mmol/L BUN 36 H (7-17) mg/dL Creatinine 1.09 H (0.52-1.04) mg/dL Ferritin 483.2 H (10.0-291.0) ng/mL Total Protein 5.5 L (6.3-8.2) g/dL Albumin 2.9 L (3.5-5.0) g/dL Microbiology - Last 24 Hours (Table) 01/17/20 08:13 Blood Culture - Preliminary Blood No Growth after 96 hours Assessment and Plan Plan: 1 Acute on chronic hypoxemic respiratory failure secondary to CoVID 19 pneumonitis 2 Acute exacerbation of chronic obstructive pulmonary disease secondary to above 3 Elevated inflammatory markers secondary to Covid 19 infection 4 Chronic tobacco dependence 5 Hypertension Plan The patient is clinically improved. The patient can be discharged home on oral Decadron to complete a ten-day course. Completed the course of Levaquin. Continue with droplet isolation at home. We'll see her back in the office in 2- 3 weeks time. Clinically improved. Chest x-ray still showing some residual infiltration of the lung bases. Overall condition is stable pH, discharge from the pulmonary standpoint.
[2020-01-21 14:01] VITALS: BP 128/58; PULSE 62; TEMP 98.4
[2020-01-21] MEDS: lisinopriL 20 MG TAB PO SCH (15:21)
[2020-01-21] MEDS: hydrALAZINE HCL 25 MG TAB PO SCH (15:21)
--- NOTE | 2020-01-21 16:17 | PN ---
PROGRESS NOTE DATE OF SERVICE: 01/21/2020 REASON FOR FOLLOWUP: Acute COVID-19 pneumonia. INTERVAL HISTORY: The patient is currently afebrile. The patient is breathing comfortably. The patient denies having any chest pain. Very minimal cough, no sputum, no nausea, no vomiting, no abdominal pain, no diarrhea. PHYSICAL EXAMINATION: Blood pressure is 103/55, pulse of 59, temperature 98.5, she is 96% on 3 L nasal cannula. General description is an elderly female up in the bed in no distress. RESPIRATORY SYSTEM: Unlabored breathing with scattered rhonchi for a pulmonary exam. EXTREMITIES: No edema of the feet. LABS: Hemoglobin 13.8, white count 6.3, BUN of 36, creatinine 1.09. DIAGNOSTIC IMPRESSION/PLAN: Patient with acute COVID-19 pneumonia in this patient who has shown overall clinical improvement. Patient has completed a 5-day course of . She will finish a course of dexamethasone and also a short course of oral Levaquin as her blood culture was elevated and close outpatient followup. Questions and concerns were answered. MMODL / IJN: [id number] /
[2020-01-22] MEDS ORDERED: FAMOTIDINE 20 MG TAB PO SCH (09:00)
--- NOTE | 2020-01-22 09:25 | P.DS ---
Providers Date of admission: 01/15/20 22:21 Expected date of discharge: 01/21/20 Attending physician: Michael Pang Consults: 01/15/20 22:53 Consult Physician Routine Consulting Provider: Kelechi Mart Consult Reason/Comments: COUGH/SOB Do you want consulting provider notified?: Yes, Notify in am 01/15/20 22:54 Consult Physician Routine Consulting Provider: Aravind Parisi Consult Reason/Comments: + COVID-19 Do you want consulting provider notified?: Yes, Notify in am Primary care physician: Tricia Carter [facility] Course: Final diagnosis Acute bilateral pneumonia with acute hypoxic respiratory failure secondary to bilateral interstitial pneumonia secondary to Covid 19 pneumonia Chronic obstructive pulmonary disease, acute exacerbation Leukopenia, improved Elevated d-dimer Elevated ferritin Increased AST Increased LDH and CRP due to Covid 19 History of chronic obstructive pulmonary disease Hypertension Supraventricular tachycardia History of left leg pain and numbness and spasms History of pulmonary hypertension History of nerve stimulator on the back History of degenerative joint disease History of anxiety Obesity with a body mass index of 37.2 History of nicotine dependence Full code Discharge disposition Patient is being discharged in a stable condition with guarded prognosis to home. Patient will follow-up with Tricia Carter upon discharge. Patient will continue with a short course of oral antibiotics in the form of Levaquin 750 mg daily for the next 5 days. Patient will also continue on dexamethasone for the next 5 days to complete the course. Patient will continue with bronchodilators and prescriptions were provided. Total time taken is greater than 35 minutes. History of present illness This is an 69-year-old female who was recently admitted with Covid 19 pneumonia as well as bilateral aspiration and was being closely monitored. Chest x-rays continued to show persistent infiltrates. Patient was being closely monitored w ith pulmonary as well as infectious disease. Patient was maintained on inhalers along with dexamethasone and antibiotics and will continue with dexamethasone for the next 5 days to complete the course along with Levaquin 750 mg daily for the next 5 days to complete the course. Patient instructed to continue to isolate in the home for an additional one week and until symptom-free for at least 3 days. Patient given prescriptions for DuoNeb treatments and to continue with inhalers. Patient would like to go home today. Currently no reports of chest pain, worsening shortness of breath, or palpitations. Patient is afebrile. No reports of nausea or vomiting and patient is tolerating diet. Guarded prognosis. On exam vital signs are stable. Temp is 98.4F, pulse is 62, respirations are 18, blood pressure is 128/58, oxygen saturation is 96% on 3 L via nasal cannula. Cardio S1, S2 are muffled. Respiratory shows diminished breath sounds at the bases with some scattered rhonchi noted. Abdomen is soft and nontender. Nervous system shows no focal deficits. Please refer to medication reconciliation sheet for a list of medications. Patient Condition at Discharge: Stable Plan - Discharge Summary New Discharge Prescriptions: New Levofloxacin [Levaquin] 750 mg PO DAILY 5 Days #5 tab amLODIPine [Norvasc] 10 mg PO DAILY 30 Days #30 tab Zinc Sulfate [Orazinc] 220 mg PO DAILY 30 Days #30 cap Acetaminophen Tab [Tylenol] 650 mg PO Q4HR PRN tab PRN Reason: Fever And/ Or Pain Ascorbic Acid [Vitamin C] 500 mg PO DAILY 30 Days #30 tab Ipratropium-Albuterol Nebulize [Duoneb 0.5 mg-3 mg/3 ml Soln] 3 ml INHALATION QID 30 Days #90 neb Ipratropium-Albuterol Nebulize [Duoneb 0.5 mg-3 mg/3 ml Soln] 3 ml INHALATION QID PRN 30 Days #90 neb PRN Reason: Shortness Of Breath dexAMETHasone [Hexadrol] 6 mg PO DAILY 10 Days #10 tab Continue atenoloL [Tenormin] 50 mg PO DAILY Acetaminophen-Codeine 300-30mg [Tylenol w/codeine #3] 1 tab PO TID PRN PRN Reason: Pain Benzonatate [Tessalon Perles] 100 mg PO TID PRN PRN Reason: Cough Furosemide [Lasix] 40 mg PO DAILY Albuterol Inhaler [Ventolin Hfa Inhaler] 2 puff INHALATION RT-Q6H PRN PRN Reason: Shortness Of Breath Tiotropium 18 Mcg/Puff [Spiriva] 1 puff INHALATION RT-DAILY Ergocalciferol [Vitamin D2 (DRISDOL)] 50,000 unit PO TUTH Budesonide/Formoterol Fumarate [Symbicort 160-4.5 Mcg Inhaler] 2 puff INHALATION RT-BID Sertraline [Zoloft] 50 mg PO DAILY Isosorbide Mononitrate ER [Imdur] 30 mg PO DAILY Sf Plus 1.1% 1 applic PO BID Magnesium 200 mg PO HS Discharge Medication List atenoloL [Tenormin] 50 mg PO DAILY 12/02/14 [History] Acetaminophen-Codeine 300-30mg [Tylenol w/codeine #3] 1 tab PO TID PRN 12/06/14 [History] Albuterol Inhaler [Ventolin Hfa Inhaler] 2 puff INHALATION RT-Q6H PRN 01/15/20 [History] Benzonatate [Tessalon Perles] 100 mg PO TID PRN 01/15/20 [History] Budesonide/Formoterol Fumarate [Symbicort 160-4.5 Mcg Inhaler] 2 puff INHALATION RT-BID 01/15/20 [History] Ergocalciferol [Vitamin D2 (DRISDOL)] 50,000 unit PO TUTH 01/15/20 [History] Furosemide [Lasix] 40 mg PO DAILY 01/15/20 [History] Isosorbide Mononitrate ER [Imdur] 30 mg PO DAILY 01/15/20 [History] Magnesium 200 mg PO HS 01/15/20 [History] Sertraline [Zoloft] 50 mg PO DAILY 01/15/20 [History] Sf Plus 1.1% 1 applic PO BID 01/15/20 [History] Tiotropium 18 Mcg/Puff [Spiriva] 1 puff INHALATION RT-DAILY 01/15/20 [History] Acetaminophen Tab [Tylenol] 650 mg PO Q4HR PRN tab 01/21/20 [Rx] Ascorbic Acid [Vitamin C] 500 mg PO DAILY 30 Days #30 tab 01/21/20 [Rx] Ipratropium-Albuterol Nebulize [Duoneb 0.5 mg-3 mg/3 ml Soln] 3 ml INHALATION QID 30 Days #90 neb 01/21/20 [Rx] Ipratropium-Albuterol Nebulize [Duoneb 0.5 mg-3 mg/3 ml Soln] 3 ml INHALATION QID PRN 30 Days #90 neb 01/21/20 [Rx] Levofloxacin [Levaquin] 750 mg PO DAILY 5 Days #5 tab 01/21/20 [Rx] Zinc Sulfate [Orazinc] 220 mg PO DAILY 30 Days #30 cap 01/21/20 [Rx] amLODIPine [Norvasc] 10 mg PO DAILY 30 Days #30 tab 01/21/20 [Rx] dexAMETHasone [Hexadrol] 6 mg PO DAILY 10 Days #10 tab 01/21/20 [Rx] Follow up Appointment(s)/Referral(s): [facility], [NON-STAFF] - 1-2 Days ([facility] to set up appointment time ) Tricia Carter NPC [Primary Care Provider] - 1-2 Days (Call office and ask when you would be available for follow up for covid) Patient Instructions/Handouts: Pneumonia (DC) Activity/Diet/Wound Care/Special Instructions: Activity Limited until follow-up Continue current diet Continue with dexamethasone for an additional 5 days to complete the course Follow-up with primary care provider in the outpatient setting Continue with antibiotics until finished Continue to isolate for another 1-2 weeks and until symptom-free for at least 3 days Discharge Disposition: HOME WITH HOME HEALTH SERVICES
== END 2020-01-21 15:47 | disposition home health service (06) | DRG 177 ==
LOC: 3SCARD 22:21
PROVIDERS: ADMIT Internal Medicine; ATTEND Internal Medicine
DX: U07.1 COVID-19 (principal); J12.89 Other viral pneumonia; J96.21 Acute and chronic respiratory failure with hypoxia; I47.1 Supraventricular tachycardia; J44.0 Chronic obstructive pulmonary disease with (acute) lower respiratory infection; J44.1 Chronic obstructive pulmonary disease with (acute) exacerbation; I16.1 Hypertensive emergency; D72.810 Lymphocytopenia; I10 Essential (primary) hypertension; G89.29 Other chronic pain; M54.9 Dorsalgia, unspecified; M79.605 Pain in left leg; M19.90 Unspecified osteoarthritis, unspecified site; F41.9 Anxiety disorder, unspecified; E66.9 Obesity, unspecified; Z68.37 Body mass index [BMI] 37.0-37.9, adult; F17.200 Nicotine dependence, unspecified, uncomplicated; Z99.81 Dependence on supplemental oxygen; Z79.51 Long term (current) use of inhaled steroids; Z79.899 Other long term (current) drug therapy; Z96.82 Presence of neurostimulator; Z86.79 Personal history of other diseases of the circulatory system; Z90.49 Acquired absence of other specified parts of digestive tract; Z87.19 Personal history of other diseases of the digestive system; Z87.39 Personal history of other diseases of the musculoskeletal system and connective tissue; Z98.890 Other specified postprocedural states; Z88.0 Allergy status to penicillin
CPT/HCPCS: 71045; 80053; 81001; 82550; 82728; 83605; 83615; 84145; 84484; 85025; 85379; 85610; 85730; 86140; 87040; 87070; 87205; 93306; 94640